=== PATIENT | male | born 1930 | race Caucasian/White ===

== ENCOUNTER 2017-09-27 09:24 | Outpatient (CLI) | payer MEDICARE, BC ==
[2017-09-27 10:41] LABS: Hemoglobin 11.9 g/dL (14.0-18.0); Mean Corpuscular HGB CONC 33.9 g/dL (32.0-36.0); Mean Corpuscular Hemoglobin 34.7 pg (27.0-31.0); Mean Platelet Volume 7.4 fL (7.4-10.4); Platelet Count 152 thou/uL (130-400); RBC Distribution Width 11.8 % (11.5-14.5); Red Blood Cell (RBC) Count 3.43 mill/uL (4.70-6.10); White Blood Cell (WBC) Count 5.1 thou/uL (4.8-10.8)
[2017-09-27 10:49] LABS: INR-International Normal Ratio 1.1; PTT 28.5 SEC (22.9-36.1); Prothrombin Time 14.1 SEC (12.0-14.7)
[2017-09-27 11:01] LABS: ALT (SGPT) 10 U/L (8-55); AST (SGOT) 13 U/L (5-34); Alkaline Phosphatase 51 U/L (40-150); Anion Gap 13 mmol/L (10-20); BUN (Urea Nitrogen) 24 mg/dL (8.4-25.7); Bilirubin, Total 0.9 mg/dL (0.2-1.2); Calc. Creatinine Clearance 0 mL/min (70-130); Calcium 8.7 mg/dL (7.8-10.44); Carbon Dioxide 23 mmol/L (23-31); Chloride 107 mmol/L (98-107); Estimated GFR-MDRD 38; Globulin 2.5 g/dL (2.4-3.5); Glucose 241 mg/dL (83-110); Potassium 4.2 mmol/L (3.5-5.1); Protein, Total 6.5 g/dL (5.8-8.1); Sodium 139 mmol/L (136-145)
--- NOTE | 2017-09-27 12:01 | RAD ---
PA AND LATERAL CHEST RADIOGRAPH: Date: 09-27-17 History: Pre-operative evaluation. Comparison: 03-30-15 FINDINGS: Cardiac silhouette remains mildly enlarged. There is mild elevation of the right hemidiaphragm with m ild atelectasis at each lung base. There is a hiatal hernia seen in the retrocardiac region. Vascular calcification in the thoracic aorta. Mild degenerative changes are noted in the spine. Vascular calc ification seen in the thoracic as well as abdominal aorta. IMPRESSION: 1. No acute cardiopulmonary process. 2. Cardiomegaly. 3. Elevation right hemidiaphragm. 4. Hiatal hernia retrocardiac region. POS: [facility]
== END 2017-09-27 09:25 | disposition home or self-care (01) ==
LOC: LABBT 09:24
PROVIDERS: ATTEND Internal Medicine Cardiovascular Disease
DX: Z01.818 Encounter for other preprocedural examination (principal); I35.0 Nonrheumatic aortic (valve) stenosis; I51.7 Cardiomegaly; K44.9 Diaphragmatic hernia without obstruction or gangrene; J98.6 Disorders of diaphragm
CPT/HCPCS: 71046; 80053; 85027; 85610; 85730; 93005; 93010

== ENCOUNTER 2017-10-01 06:04 | Inpatient (IN) | payer MEDICARE, BC ==
--- NOTE | 2017-09-30 22:38 | HP ---
DATE OF ADMISSION: 10/01/2017 HISTORY OF PRESENT ILLNESS: Caleb Reis is an 87-year-old white male that I initially evaluated in 05/2008. He was found to have a heart murmur and he had been told that for at least 10-15 years. He denied any cardiac symptoms of chest pain or shortness of breath. Echocardiogram revealed mild aortic stenosis with a peak gradient of 30 mm, mean gradient of 18 mm. He underwent Cardiolite treadmill test exercising for 4 minutes and 15 seconds and had [address] segment depression in II, III, F, V4 through V6, which resolved in less than 1 minute into recovery. The test was suggestive for ischemia. Cardiolite revealed no evidence of ischemia or fixed defect. He continued to be intermittently followed in the office for his aortic stenosis. He was seen on a yearly basis for followup of his aortic stenosis. It is of note that in 04/2014 on echo, he did not have a pericardial effusion. He then presented to the hospital in 10/2014 with altered mental status. He apparently had gone to an [employer] football game and was quite silent at the game, which was unusual for him. The family noted increasing lethargy and weakness. Echocardiogram showed a [id number] sized pericardial effusion with early signs of tamponade. His mental status changes gradually improved. There was question of whether he had a viral encephalopathy. He was placed on colchicine for his pericardial effusion. He underwent a lumbar puncture, which was unremarkable. He was started on acyclovir. He ultimately was discharged to rehabilitation. In both 12/2014 and 02/2015, he continued to have moderate pericardial effusion. This never did resolve. He did have some exertional dyspnea and ultimately it was felt that he should undergo pericardial window and biopsy, which was performed by Dr. Henao on 03/30/2015. Pericardial biopsy revealed mild chronic inflammation, but no evidence of malignancy. In 05/2015, due to continued dyspnea, we discussed cardiac catheterization for further evaluation of his aortic stenosis. However, he fell and broke his pelvis and denied any shortness of breath after the pelvic fracture. After that , it seemed like he was not symptomatic with shortness of breath any longer. In 05/2016, he stated that his breathing was doing better than it was 6 months prior and he would only get short of breath if he would run. In 04/2017, his dyspnea again would only occur if he would run. He then returned for followup on 09/10/2017. He continued to have mild dyspnea. On 09/26/2017, he returned for followup and echo. He started to have more shortness of breath and pedal edema. Echocardiography revealed moderate concentric left ventricular hypertrophy with ejection fraction of 50%-55%, moderate left atrial enlargement, mild right atrial enlargement, moderate mitral annular calcification, moderate mitral regurgitation with possible torn chordae. He had severe aortic stenosis with peak gradient of 89 mm, mean gradient of 57 mm and an aortic valve area of 0.62 cm2, moderate to severe aortic insufficiency, severe tricuspid regurgitation and mild pulmonic regurgitation. With his worsening dyspnea as well as pedal edema, it was felt that he was started to have heart failure symptoms and with his severe aortic stenosis, this needed to be further evaluated and consideration will be given to aortic valve replacement. Risks of catheterization have been discussed including , myocardial infarction, CVA, transfusion, limb loss, dye reaction, vascular injury, kidney failure, etc. He understands and agrees to proceed. His creatinine is 1.72 and this will be performed in the biplane room. PAST MEDICAL HISTORY: Hypertension, hypercholesterolemia, diet-controlled diabetes, obstructive sleep apnea, restless legs syndrome, aortic stenosis. OPERATIONS: Left inguinal herniorrhaphy, appendectomy, left hand surgery. MEDICATIONS: Aspirin 81 daily, terazosin 5 mg daily, valsartan 320 q.a.m., benazepril 10 mg at bedtime, amlodipine 10 mg 1/2 tablet daily, clonazepam 0.5 mg daily, zolpidem 10 mg at bedtime, simvastatin 20 mg 1/2 tablet q.p.m., hydralazine 100 mg b.i.d., furosemide 20 mg q.a.m., carvedilol 3.125 at bedtime. ALLERGIES: PENICILLIN. SOCIAL HISTORY: He does not smoke. He occasionally drinks wine. FAMILY HISTORY: Negative for coronary artery disease. REVIEW OF SYSTEMS: Otherwise, unremarkable as noted in the office note. PHYSICAL EXAMINATION: VITAL SIGNS: Blood pressure 146/61, pulse is 68. HEENT: PERRL. NECK: Supple. CHEST: Clear. CARDIAC: S1 and S2 normal without any S3 or S4. There is a 2-3/6 systolic murmur heard along the left sternal border. ABDOMEN: Normal bowel sounds without tenderness or organomegaly. EXTREMITIES: Revealed 1+ pretibial edema. NEUROLOGIC: Grossly intact. SKIN: Warm and dry. LABORATORY DATA: Creatinine is 1.72. IMPRESSION: 1. Severe aortic stenosis with valve area of 0.62 cm2 on echo and now with development of somewhat increasing shortness of breath as well as pedal edema. 2. History of a pericardial effusion, which did not resolve over many months and ultimately underwent pericardial window and no specific etiology was found. 3. Hypertension. 4. Hypercholesterolemia. 5. Diet-controlled diabetes. 6. Chronic kidney disease. 7. Obstructive sleep apnea. PLAN: Mr. Reis will undergo cardiac catheterization and indicated procedures. Risks of catheterization have been discussed and he agrees to proceed. THOMPSON
[2017-10-01] MEDS ORDERED: Protamine Sulfate 50 MG/5 ML VIAL ONE (06:39)
[2017-10-01] MEDS ORDERED: Nitroglycerin 100MG/250ML BOT 0 ML ONE (06:39)
[2017-10-01] MEDS ORDERED: Heparin 10,000 UNITS/1 ML VIAL ONE (06:39)
[2017-10-01 06:48] LABS: Anion Gap 10 mmol/L (10-20); BUN (Urea Nitrogen) 22 mg/dL (8.4-25.7); Calc. Creatinine Clearance 37 mL/min (70-130); Carbon Dioxide 26 mmol/L (23-31); Chloride 107 mmol/L (98-107); Estimated GFR-MDRD 42; Glucose 132 mg/dL (83-110); Potassium 4.1 mmol/L (3.5-5.1); Sodium 139 mmol/L (136-145)
[2017-10-01] MEDS ORDERED: Fentanyl 100 MCG/2 ML VIAL ONE (07:30)
[2017-10-01] MEDS ORDERED: Midazolam HCl 2 mg/2 ml Vial ONE (07:30)
[2017-10-01] MEDS ORDERED: Acetaminophen/Codeine 30-300mg Tablet PO PRN ×2 (08:38)
[2017-10-01] MEDS ORDERED: traMADol HCl 50 MG TAB PO PRN (08:38)
[2017-10-01] MEDS ORDERED: Nitroglycerin 0.4 MG TAB (25 Tab Bottle) SL PRN (08:38)
[2017-10-01] MEDS ORDERED: clonazePAM 0.5 MG TAB PO PRN (08:44)
[2017-10-01] MEDS ORDERED: Sodium Chloride 0.9% 1,000 ML IV SCH ×2 (08:45→14:45)
[2017-10-01] MEDS ORDERED: Sodium Chloride 0.9% 200 ML IV PRN (08:45)
[2017-10-01] MEDS ORDERED: Zolpidem Tartrate 5 MG TAB PO PRN (08:52)
[2017-10-01] MEDS ORDERED: Amlodipine 5 MG TAB PO SCH ×2 (09:00→21:00)
[2017-10-01] MEDS ORDERED: Escitalopram Oxalate 10 mg Tablet PO SCH ×2 (10:00→17:00)
[2017-10-01] MEDS ORDERED: Iopamidol 370 76% 50 ML VIAL FS ONE (10:18)
[2017-10-01] MEDS ORDERED: Iopamidol 370 76% 100 ML VIAL ONE (10:18)
--- NOTE | 2017-10-01 12:55 | CON ---
DATE OF CONSULTATION: 10/01/2017 HISTORY OF PRESENT ILLNESS: This is an 87-year-old gentleman with a fairly long history of aortic st enosis that has slowly progressed over time with the most recent echo showing a peak gradient of abou t 89 mm. He has developed some peripheral edema and does have some dyspnea on exertion. He underwen t cardiac catheterization today showing about a 70% calcified right coronary artery lesion in the pro ximal third with otherwise fairly mild coronary disease. His aortic valve gradient was 75 with a whit ve area of 0.54 cm2. He had some pulmonary hypertension with PA pressures of almost 80 and RV pressu res of almost 90. PAST MEDICAL HISTORY: Additional past medical history includes hypertension, dyslipidemia, diabetes mellitus, obstructive lung disease, chronic kidney disease. PAST SURGICAL HISTORY: Includes a remote left inguinal hernia and appendectomy and hand surgery. Ot wise, his past medical history does include a pelvic fracture about 2-3 years ago which had him do wn for about a month. HOME MEDICATIONS: Include aspirin 81 a day, Hytrin 5 mg a day, valsartan 320 a day, benazepril 10 mg at bedtime, amlodipine 5 mg a day, clonazepam 0.5 mg a day, simvastatin 10 mg a day, hydralazine 100 b.i.d., Lasix 20 a day, Coreg 3.125 at bedtime. ALLERGIES: PENICILLIN. 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 He has never smoked. He drinks occasionally and is accompanied today by his as well as a daughter from the [place] area. PHYSICAL EXAMINATION: GENERAL: He is an alert, cooperative gentleman, elderly, slightly hard of hearing. NECK: I did not appreciate any bruits. LUNGS: Clear to auscultation anteriorly. CARDIAC: Systolic murmur across the precordium. ABDOMEN: Slightly obese, nontender, no organomegaly, no palpable aneurysm. EXTREMITIES: He has some mild bilateral lower extremity edema with palpable femoral and posterior ti bial pulses bilaterally. Puncture site in the right groin with slight hematoma. I have gone over the situation with the patient and family. Given his age, TAVR may be most appropri ate initial approach. Surgical intervention could certainly be entertained if he is not a candidate for TAVR. Additional past surgical history includes a pericardial window about 2 years ago for a moderate sized pericardial effusion. I have gone over and answered their questions and at this time, he will be ad mitted overnight for hydration and monitor his puncture site and if the family decides to proceed wit h a TAVR procedure, we will need to direct them to one of the facilities either [facility] or [facility] that can handle this.
[2017-10-01] MEDS ORDERED: Furosemide 20 MG/2 ML VIAL ONE (14:52)
[2017-10-01] MEDS: Aspirin 81 mg Enteric Coated Tablet PO SCH (16:19)
[2017-10-01] MEDS: hydrALAZINE 25 MG TAB PO SCH ×2 (16:55→21:15)
[2017-10-01] MEDS ORDERED: cloNIDine 0.1 MG TAB PO PRN (16:56)
[2017-10-01] MEDS: Carvedilol 6.25 MG TAB PO SCH (17:06)
[2017-10-01 18:14] VITALS: BMI 29.5
[2017-10-01] MEDS ORDERED: Simvastatin 20 MG TAB PO SCH (21:00)
[2017-10-01] MEDS ORDERED: Donepezil HCl 5 MG TAB PO SCH (21:00)
[2017-10-01] MEDS ORDERED: Terazosin HCl 5 MG CAP PO SCH (21:00)
[2017-10-02 05:42] LABS: Anion Gap 12 mmol/L (10-20); BUN (Urea Nitrogen) 19 mg/dL (8.4-25.7); Calc. Creatinine Clearance 52 mL/min (70-130); Calcium 8.2 mg/dL (7.8-10.44); Carbon Dioxide 21 mmol/L (23-31); Chloride 108 mmol/L (98-107); Estimated GFR-MDRD 58; Glucose 124 mg/dL (83-110); Potassium 3.8 mmol/L (3.5-5.1); Sodium 137 mmol/L (136-145)
[2017-10-02] MEDS: Aspirin 81 mg Enteric Coated Tablet PO SCH (08:36)
[2017-10-02] MEDS: hydrALAZINE 25 MG TAB PO SCH (08:36)
[2017-10-02] MEDS: Carvedilol 6.25 MG TAB PO SCH (08:36)
[2017-10-02] MEDS ORDERED: Escitalopram Oxalate 10 mg Tablet PO SCH (09:00)
[2017-10-02] MEDS ORDERED: Furosemide 20 MG TAB PO SCH (09:00)
[2017-10-02] MEDS ORDERED: Valsartan 80 MG TAB PO SCH (09:15)
[2017-10-02 10:57] VITALS: BP 135/69; TEMP 98.2
--- NOTE | 2017-10-02 11:40 | DIS ---
DATE OF ADMISSION: 10/01/2017 DATE OF DISCHARGE: 10/02/2017 DISCHARGE DIAGNOSES: 1. Severe aortic stenosis with valve area of 0.54 cm2, mean gradient 75 mm. 2. Two-vessel coronary artery disease - 50% ramus and 70% proximal right coronary artery. 3. Normal left ventricular function. 4. History of chronic pericardial effusion, ultimately undergoing pericardial window and pericardial biopsy without specific etiology being found in 03/2015. 5. Hypertension. 6. Hypercholesterolemia. 7. Diet-controlled diabetes. 8. Chronic kidney disease. 9. Obstructive sleep apnea. DISCHARGE MEDICATIONS: Carvedilol 6.25 at bedtime will be increased to 6.25 b.i.d. He will continue his other medications, amlodipine 5 mg q.p.m., aspirin 81 daily, clonazepam 0.5 at bedtime, vitamin B12 1000 mcg q.a.m., Aricept 5 mg at bedtime, Synalar solution topically b.i.d., furosemide 20 q.a.m., hydralazine 100 mg b.i.d., multivitamin, simvastatin 10 at bedtime, terazosin 5 mg at bedtime, valsartan 320 q.p.m., zolpidem tartrate 10 mg at bedtime. DISCHARGE DISPOSITION: The patient will be seen in followup in 2 months. He is going home to decide on TAVR with right coronary artery stent placement and where he wishes to have this performed. Arrangements will be made for him to be evaluated. It was emphasized that this decision is to be made soon with his severe aortic stenosis. HOSPITAL COURSE: Mr. Reis noted to have increased shortness of breath as well as peripheral edema. Please see admission note for further details. The decision was made to observe him overnight and to gently hydrate him overnight with a creatinine of 1.72. His initial creatinine prior to catheterization when he came back was 1.56 and after hydration, the following morning, his creatinine is 1.19. Also, 2 weeks ago, he had an LDL cholesterol of 64. At cardiac catheterization, he was found to have normal left ventricular function with ejection fraction of 55%-60%. There was no significant mitral regurgitation at catheterization. Hemodynamics revealed aortic valve gradient 75 mm with an aortic valve area of 0.54 cm2. He had pulmonary artery hypertension with right ventricular pressure of 87/16. Coronary arteries revealed normal left main, 20% proximal LAD, 50% ramus, and normal circumflex. The right coronary artery had a 30% and a 70% proximal stenosis. The patient was seen by Dr. Farias for evaluation of aortic valve replacement and CABG x1. It was also his feelings that if TAVR can be performed , probably this would be in this gentleman's best interest with chronic kidney disease and memory deficit. He was observed overnight, hydrated and then discharged to arrive at a decision regarding TAVR and stent placement and where to have this. THOMPSON
[2017-10-03] MEDS ORDERED: Valsartan 80 MG TAB PO SCH (09:00)
== END 2017-10-02 11:28 | disposition home or self-care (01) | DRG 287 ==
LOC: CCL 06:04 → 2NO 15:31
PROVIDERS: ADMIT Internal Medicine Cardiovascular Disease; ATTEND Internal Medicine Cardiovascular Disease
PROC: 4A023N7 Measurement of Cardiac Sampling and Pressure, Left Heart, Percutaneous Approach (ICD-10-PCS; principal; 2017-10-01)
PROC: B2111ZZ Fluoroscopy of Multiple Coronary Arteries using Low Osmolar Contrast (ICD-10-PCS; 2017-10-01)
DX: I35.0 Nonrheumatic aortic (valve) stenosis (principal); I10 Essential (primary) hypertension; E78.00 Pure hypercholesterolemia, unspecified; E11.9 Type 2 diabetes mellitus without complications; N18.9 Chronic kidney disease, unspecified; E11.22 Type 2 diabetes mellitus with diabetic chronic kidney disease; G47.33 Obstructive sleep apnea (adult) (pediatric)
CPT/HCPCS: 36415; 80048; 85347; 93460; 93567; 99152; 99153; C1769; J1644; J1940; J2250; J2720; J3010

== ENCOUNTER 2017-10-06 16:08 | Observation (INO) | payer MEDICARE, BC ==
[2017-10-06 16:49] LABS: Hemoglobin 10.5 g/dL (14.0-18.0); Mean Corpuscular HGB CONC 36.6 g/dL (32.0-36.0); Mean Corpuscular Hemoglobin 33.8 pg (27.0-31.0); Mean Corpuscular Volume 92.2 fL (78.0-98.0); Platelet Count 141 thou/uL (130-400); RBC Distribution Width 11.3 % (11.5-14.5); Red Blood Cell (RBC) Count 3.12 mill/uL (4.70-6.10); White Blood Cell (WBC) Count 7.6 thou/uL (4.8-10.8)
--- NOTE | 2017-10-06 16:50 | RAD ---
CHEST ONE VIEW: History: Dyspnea. Comparison: 09-27-17 FINDINGS: Cardiac silhouette is magnified and enlarged. Pulmonary vasculature more engorged with widespread ret icular nodular interstitial prominence. Right hemidiaphragm remains elevated. Mediastinum midline wit h aortic calcification. No lobar consolidation or evidence of pneumothorax. IMPRESSION: Cardiomegaly. Pulmonary vascular congestion. POS: [facility]
[2017-10-06] MEDS ORDERED: Nitroglycerin 2% Ointment 1 INCH/1 GM Packet ONE (16:54)
[2017-10-06 16:56] LABS: ALT (SGPT) 13 U/L (8-55); AST (SGOT) 19 U/L (5-34); Albumin 3.8 g/dL (3.4-4.8); Alkaline Phosphatase 50 U/L (40-150); Anion Gap 13 mmol/L (10-20); BUN (Urea Nitrogen) 18 mg/dL (8.4-25.7); Bilirubin, Total 1.3 mg/dL (0.2-1.2); CK (CPK) 38 U/L (30-200); Calc. Creatinine Clearance 0 mL/min (70-130); Calcium 8.8 mg/dL (7.8-10.44); Carbon Dioxide 24 mmol/L (23-31); Chloride 106 mmol/L (98-107); Estimated GFR-MDRD 45; Globulin 2.8 g/dL (2.4-3.5); Glucose 137 mg/dL (83-110); Lipase 18 U/L (8-78); Potassium 4.2 mmol/L (3.5-5.1); Protein, Total 6.6 g/dL (5.8-8.1); Sodium 139 mmol/L (136-145)
[2017-10-06 16:57] LABS: Troponin I 0.054 ng/mL (< 0.028)
[2017-10-06 17:02] LABS: Band 5 % (5-11); Eosinophils 2 % (0-10); Lymphocytes 14 % (21-51); MDiff Complete? YES; Monocytes 7 % (0-10); Neutrophil 72 % (42-75); PLT Morphology Comment Appears Adequate
[2017-10-06] MEDS ORDERED: Furosemide 20 MG/2 ML VIAL ONE (17:32)
[2017-10-06] MEDS ORDERED: Donepezil HCl 5 MG TAB PO SCH (21:30)
[2017-10-06 21:35] VITALS: BMI 28.2
[2017-10-06] MEDS ORDERED: Terazosin HCl 5 MG CAP PO SCH (21:45)
[2017-10-06] MEDS ORDERED: clonazePAM 0.5 MG TAB PO SCH (21:45)
[2017-10-06] MEDS ORDERED: Escitalopram Oxalate 20 mg Tablet PO SCH (21:45)
[2017-10-06] MEDS ORDERED: Amlodipine 5 MG TAB PO SCH (21:45)
[2017-10-06] MEDS ORDERED: Carvedilol 6.25 MG TAB PO SCH (21:45)
[2017-10-06] MEDS ORDERED: hydrALAZINE 25 MG TAB PO SCH (21:45)
[2017-10-06] MEDS ORDERED: Valsartan 80 MG TAB PO SCH (21:45)
[2017-10-06] MEDS ORDERED: Simvastatin 20 MG TAB PO SCH (21:45)
[2017-10-06] MEDS ORDERED: Ondansetron HCl/PF 4 MG/2 ML Vial IVP PRN (22:53)
[2017-10-06] MEDS ORDERED: Acetaminophen 325 MG TAB PO PRN (22:53)
[2017-10-06 23:31] LABS: Troponin I 0.064 ng/mL (< 0.028)
[2017-10-07] MEDS: Nitroglycerin 2% Ointment 1 INCH/1 GM Packet TOP SCH ×3 (00:50→12:05)
[2017-10-07] MEDS ORDERED: Zolpidem Tartrate 5 MG TAB PO PRN (01:06)
[2017-10-07] MEDS ORDERED: Dextrose 5% in Water 1,000 ML IV PRN (01:14)
[2017-10-07] MEDS ORDERED: Dextrose 50% Abboject 50 ML SYRINGE SLOW IVP PRN (01:14)
[2017-10-07] MEDS ORDERED: HumaLOG 300 UNITS/3 ML VIAL SC PRN (01:14)
[2017-10-07 05:39] LABS: #Eosinphils 0.1 thou/uL (0.0-0.7); #Lymphocytes 1.3 thou/uL (1.20-3.40); #Monocytes 0.8 thou/uL (0.11-0.59); %Basophils 0.2 % (0.0-1.0); %Eosinophils 1.1 % (0.0-10.0); %Lymphocytes 17.7 % (21.0-51.0); %Monocytes 10.5 % (0.0-10.0); %Neutrophils 70.5 % (42.0-75.0); Hemoglobin 10.1 g/dL (14.0-18.0); Mean Corpuscular HGB CONC 34.4 g/dL (32.0-36.0); Mean Corpuscular Hemoglobin 34.9 pg (27.0-31.0); Mean Platelet Volume 7.1 fL (7.4-10.4); Platelet Count 134 thou/uL (130-400); RBC Distribution Width 11.6 % (11.5-14.5); Red Blood Cell (RBC) Count 2.89 mill/uL (4.70-6.10); White Blood Cell (WBC) Count 7.2 thou/uL (4.8-10.8)
[2017-10-07 05:44] LABS: Anion Gap 14 mmol/L (10-20); BUN (Urea Nitrogen) 17 mg/dL (8.4-25.7); Calc. Creatinine Clearance 40 mL/min (70-130); Calcium 8.6 mg/dL (7.8-10.44); Carbon Dioxide 24 mmol/L (23-31); Chloride 103 mmol/L (98-107); Estimated GFR-MDRD 45; Glucose 150 mg/dL (83-110); Potassium 3.7 mmol/L (3.5-5.1); Sodium 137 mmol/L (136-145)
[2017-10-07] MEDS: Carvedilol 6.25 MG TAB PO SCH ×2 (08:48→16:06)
[2017-10-07] MEDS ORDERED: Furosemide 40 MG/4 ML VIAL SLOW IVP SCH (09:00)
[2017-10-07] MEDS ORDERED: Multivitamin W/ Minerals 1 TAB PO SCH (09:00)
[2017-10-07] MEDS ORDERED: Enoxaparin Sodium 40 MG/0.4 ML SYRINGE SC SCH (09:00)
[2017-10-07] MEDS ORDERED: hydrALAZINE 25 MG TAB PO SCH (09:00)
[2017-10-07] MEDS ORDERED: Furosemide 20 MG TAB PO SCH (09:00)
[2017-10-07] MEDS ORDERED: Betamethasone Val 0.1% Lotion 60 ML BOT TOP SCH (09:00)
[2017-10-07] MEDS ORDERED: Cyanocobalamin (Vitamin B-12) 1,000 MCG TAB PO SCH (09:00)
[2017-10-07] MEDS ORDERED: CALCIPOTRIENE TOP SCH (09:00)
--- NOTE | 2017-10-07 10:33 | PDOC.PN ---
- Subjective Encounter Start Date: 10/07/17 Encounter Start Time: 10:31 Subjective: dyspnea on exertion - Objective Resuscitation Status: Resuscitation Status FULL:Full Resuscitation MAR Reviewed: Yes Vital Signs & Weight: Vital Signs (12 hours) Temp Pulse Resp BP BP Pulse Ox 10/07/17 07:55 99.5 F 69 18 10/07/17 07:18 99.7 F H 80 20 158/76 H 92 L 10/07/17 01:51 99.5 F 69 18 113/58 L 91 L Weight Weight 178 lb 6.4 oz I&O: 10/06/17 10/07/17 10/08/17 06:59 06:59 06:59 Intake Total 360 Output Total 1200 150 Balance -840 -150 Result Diagrams: 10/07/17 04:46 10/07/17 04:46 Additional Labs: Accuchecks 10/06/17 21:33 POC Glucose 164 H Phys Exam - Physical Examination Neck: no JVD Respiratory: clear to auscultation bilateral Cardiovascular: RRR 3/6 elo/decres murmur Gastrointestinal: soft, positive bowel sounds Musculoskeletal: no edema Dx/Plan (1) Aortic stenosis, severe Code(s): I35.0 - NONRHEUMATIC AORTIC (VALVE) STENOSIS Status: Chronic (2) DM type 2 (diabetes mellitus, type 2) Status: Acute Qualifiers: Diabetes mellitus dedicated intermodal truck driver insulin use: with dedicated intermodal truck driver use Diabetes mellitus complication status: with kidney complications Diabetes mellitus complication detail: with chronic kidney disease Chronic kidney disease stage : stage 3 (moderate) Qualified Code(s): E11.22 - Type 2 diabetes mellitus with diabetic chronic kidney disease; N18.3 - Chronic kidney disease, stage 3 ( moderate); Z79.4 - termination clerk (current) use of insulin (3) Dyslipidemia Code(s): E78.5 - HYPERLIPIDEMIA, UNSPECIFIED Status: Chronic (4) CKD (chronic kidney disease) stage 3, GFR 30-59 ml/min Code(s): N18.3 - CHRONIC KIDNEY DISEASE, STAGE 3 (MODERATE) Status: Chronic (5) Hypertension Code(s): I10 - ESSENTIAL (PRIMARY) HYPERTENSION Status: Chronic Qualifiers: Hypertension type: essential hypertension Qualified Code(s): I10 - Essential (primary) hypertension - Plan cont home meds, discuss with Dr Spivey * .
--- NOTE | 2017-10-07 12:37 | CON ---
DATE OF CONSULTATION: 10/07/2017 HISTORY OF PRESENT ILLNESS: Mr. Caleb Reis is an 87-year-old white male who was just here last week for heart catheterization. Please see admission note from 09/30/2017 and discharge note from 0 10/02/2017 for full details. He was found to have severe aortic stenosis with the valve area of 0.54 cm2 and a mean gradient of 75 mm. He also had a 70% proximal right coronary artery stenosis. At harriett t time, he was seen by Dr. Jeramie Farias and it was his feeling that with the patient's advanced age an d mild dementia, probably a TAVR and stent placement would be his best option. I agree. He went home and he was doing well, but yesterday began to have acute shortness of breath after going to [facility]. He came to the emergency room. Chest x-ray showed pulmonary edema and he was given Lasi x 40 mg IV and nitro paste was placed topically. His shortness of breath has resolved and he had 120 0 mL of urine out. PAST MEDICAL HISTORY: Please see previous admission note and discharge summary. MEDICATIONS: Please see previous admission note and discharge summary. PHYSICAL EXAMINATION: VITAL SIGNS: Blood pressure 158/76, pulse of 80, sinus rhythm. HEENT: PERRL. NECK: Supple. CHEST: Reveals faint crackles at the right base. CARDIOVASCULAR: S1, S2 normal, without any S3 or S4. There is a 2-3/6 systolic ejection murmur in t he aortic area. ABDOMEN: Normal bowel sounds, without tenderness, organomegaly. EXTREMITIES: Revealed 1+ ankle edema. NEUROLOGIC: Grossly intact. SKIN: Warm and dry. LABORATORY DATA: Hemoglobin 10.1, hematocrit 29.4, white count 7200, platelets 134,000. Sodium 137, potassium 3.7, chloride 103, carbon dioxide 24, BUN 17, creatinine 1.48 (creatinine was 1.56 prior t o cardiac catheterization and was 1.19 the day after catheterization). Troponin I is up to 0.064, CK -MB is normal. BNP is 1451.1. LDL earlier this month was 64. IMPRESSION: 1. Pulmonary edema, resolving. 2. Severe aortic stenosis. 3. Two-vessel coronary artery disease - 50% ramus and 70% proximal right coronary artery. 4. Normal left ventricular function. 5. History of chronic pericardial effusion, ultimately undergoing pericardial window and pericardial biopsy without specific etiology being found in 03/2015. 6. Hypertension. 7. Hypercholesterolemia, under good control. 8. Diet controlled diabetes. 9. Chronic kidney disease. 10. Obstructive sleep apnea. PLAN: The patient and family have now decided that they wish to proceed with TAVR and probable right coronary artery stent. They wish transfer to [facility] in [place]. Arrangements for this gooden ve been made through Dr. Tate's office.
--- NOTE | 2017-10-07 12:43 | HP ---
PRIMARY CARE PHYSICIAN: Dr. Gurdeep Brizuela. CODE STATUS: FULL CODE. TIME OF EVALUATION: 10:30 p.m. CHIEF COMPLAINT: Worsening shortness of breath. HISTORY OF PRESENT ILLNESS: This is an 87 years old male patient with past medical history of sleep apnea, diabetes type 2, hyperlipidemia, high cholesterol, hypertension, came to the hospital after gooden ving severely worsening shortness of breath that started since the morning, the patient has a history of aortic stenosis, also some tightness in the chest with no clear triggers, no alleviating factors. The patient was at ease when I examined him in the room. REVIEW OF SYSTEMS: Constitutional: No fever, no chills, generalized weakness. Respiratory: Shortn ess of breath, no sputum production, no cough. Cardiovascular: Chest tightness, no palpitations, no shortness of breath. Gastrointestinal: No nausea, no vomiting, no diarrhea or abdominal pain. HEAD COACH : No dizziness, headache, or feeling lightheaded. Genitourinary: No burning with urination. Extre mities: No leg swelling. All other systems were reviewed and negative except for the findings menti oned above. PAST MEDICAL HISTORY: As mentioned in the HPI. SOCIAL HISTORY: The patient lives with . No alcohol, no drugs. No smoking history. PAST SURGICAL HISTORY: The patient has a history of appendectomy, hernia repair, orthopedic surgery left hand, pericardial window. PSYCHIATRIC HISTORY: Depression. FAMILY HISTORY: Reviewed and noncontributory to current presentation. KNOWN ALLERGIES: SULFA AND PENICILLIN. REPORTED MEDICATIONS: Aspirin, carvedilol, Centrum, clonazepam, donepezil, citalopram, furosemide, h ydralazine, simvastatin, terazosin, valsartan, vitamin B12, zolpidem, Dovonex. PHYSICAL EXAMINATION: VITAL SIGNS: On presentation, blood pressure 153/73 with heart rate 78, respiratory rate was 19, tem perature 98.4, pain was 0/10, and oxygen saturation was 94. GENERAL APPEARANCE: The patient is alert, oriented, not in any acute distress, wearing BiPAP with na tanesha mask. HEENT: Eyes: Normal conjunctiva. Moist oral mucosa. Anicteric. NECK: No JVD. RESPIRATORY: Bilateral air entry, patient has rales on the left lower lobe. No wheezing. Symmetric expansion. CARDIOVASCULAR: Normal rate, regular rhythm. No murmurs, no gallop mild, bilateral leg edema. ABDOMEN: Soft, normal bowel sounds. MUSCULOSKELETAL: Baseline range of motion and strength. No tenderness. SKIN: Warm and intact. No pallor, no rash, no redness. Peripheral pulses are present. Capillary r efill seems to be intact. NEUROLOGIC: Baseline sensory. No evidence of any new focal weakness. Baseline speech. Cranial ner ves seem to be intact. PSYCHIATRIC: The patient is in good mood. No anxiety, oriented, optimal judgment. IMAGING: EKG was reviewed. The patient had normal sinus rhythm at 77, QRS 106. No evidence of any acute ischemic findings. Chest x-ray was reviewed. The patient has cardiomegaly and pulmonary vascu lar congestion. LABORATORY DATA: The patient had normal white count, hemoglobin 10.5, MCV 92, platelet count 141. S odium 139; potassium 4.2; anion gap 13; BUN 18; creatinine 1.48 and previous admission was 1.1; gluco se 137, total bilirubin 103. Troponin initially was 0.054, then 0.064. The beta natriuretic peptide 1451. ASSESSMENT AND PLAN: The patient will be placed in the hospital with the following medical problems: 1. Acute congestive heart failure exacerbation. The patient has a recent cardiac catheterization do ne last week by Dr. Spivey, we will consult Dr. Spivey, reconcile home medications. Put the fanta ent on diuresis. 2. Acute kidney injury. The patient has creatinine 1.48, in previous admission the creatinine was 1 .1 might be cardiorenal, will be secondary to Lasix, will need to be monitor and adjust diuresis as n eeded. 3. Uncontrolled diabetes, initial blood sugar 137, second one 164, place the patient on a sliding sc elisa for optimal control. 4. Hyperlipidemia, reconcile home medications. Low cholesterol diet is advised. 5. Uncontrolled hypertension, presented with systolic blood pressure 163, reconcile home medications , adjust treatment as needed. 6. Deep venous thrombosis prophylaxis.
[2017-10-07 16:07] VITALS: BP 159/72; TEMP 102.1
--- NOTE | 2017-10-07 17:58 | DIS ---
DATE OF ADMISSION: 10/06/2017 DATE OF DISCHARGE: 10/07/2017 TRANSFER OF CARE PRIMARY CARE PROVIDER: Gurdeep Brizuela M.D. TRANSFUSION AIDE: Brandon Spivey M.D. FINAL DIAGNOSES: Severe aortic stenosis, 2-vessel coronary artery disease, normal left ventricular f unction, hypertension, dyslipidemia, diet-controlled diabetes, chronic kidney disease stage 3, pulmon beverley vascular congestion. DISCHARGE MEDICATIONS: Amlodipine 5 mg a day, aspirin 81 mg a day, Coreg 6.25 mg twice a day, clonaz epam 0.5 mg at bedtime, Aricept 5 mg a day, Lexapro 20 mg at bedtime, Lasix 20 mg a day, hydralazine 100 mg p.o. twice a day, Zocor 10 mg at bedtime, terazosin 5 mg at bedtime, valsartan 320 mg at bedti me, Ambien 10 mg a day. DIET: Heart healthy. CODE STATUS: Full code. The patient is being transferred to [facility] under the care of Dr. Tate arranged by Dr. Brandon Spivey. HOSPITAL COURSE: The patient with a long history of heart disease, tight aortic stenosis, admitted w ith some worsening shortness of breath. Chest x-ray showed some cardiomegaly and pulmonary vascular congestion. Chest reveals scant rales posteriorly on my exam. He had a 3/6 harsh systolic murmur. Hemoglobin was 10.1, white count 7.6, platelet count 141,000. His basic metabolic profile is normal except for a creatinine of 1.48. Troponins were elevated at 0.05, 0.06, 0.06. The patient was seen in consultation by Dr. Brandon Spivey. The patient has been recently in the hospital and been told he needed a TAVR. The family had not made a hard decision. At this time, they have made a hard deci senthil to transfer to [facility]. Dr. Brandon Spivey has initiated the process. The process is being completed at the present time. I have written the patient's discharge. EMS is here to pick u p the patient for transfer. CONSULTATIONS: Brandon Spivey M.D. PROCEDURES: None. FOLLOWUP: Follow up will be by Dr. Spivey after returning from having the TAVR.
[2017-10-07] MEDS ORDERED: Simvastatin 20 MG TAB PO SCH (21:00)
[2017-10-07] MEDS ORDERED: clonazePAM 0.5 MG TAB PO SCH (21:00)
[2017-10-07] MEDS ORDERED: Donepezil HCl 5 MG TAB PO SCH (21:00)
[2017-10-07] MEDS ORDERED: Valsartan 80 MG TAB PO SCH (21:00)
[2017-10-07] MEDS ORDERED: Escitalopram Oxalate 20 mg Tablet PO SCH (21:00)
[2017-10-07] MEDS ORDERED: Amlodipine 5 MG TAB PO SCH (21:00)
[2017-10-07] MEDS ORDERED: Terazosin HCl 5 MG CAP PO SCH (21:00)
== END 2017-10-07 16:59 | disposition short-term general hospital (02) ==
LOC: SCSER 16:08 → 2SW 19:04
PROVIDERS: ADMIT Hospitalist; ATTEND Hospitalist
DX: R06.02 Shortness of breath (principal); I13.0 Hypertensive heart and chronic kidney disease with heart failure and stage 1 through stage 4 chronic kidney disease, or unspecified chronic kidney disease; E11.22 Type 2 diabetes mellitus with diabetic chronic kidney disease; N18.3 Chronic kidney disease, stage 3 (moderate); I50.9 Heart failure, unspecified; N17.9 Acute kidney failure, unspecified; I35.0 Nonrheumatic aortic (valve) stenosis; J81.1 Chronic pulmonary edema; I25.10 Atherosclerotic heart disease of native coronary artery without angina pectoris; G47.30 Sleep apnea, unspecified; E78.00 Pure hypercholesterolemia, unspecified; E78.5 Hyperlipidemia, unspecified; E11.65 Type 2 diabetes mellitus with hyperglycemia; Z79.82 Long term (current) use of aspirin; Z79.4 Long term (current) use of insulin; Z79.899 Other long term (current) drug therapy; Z88.0 Allergy status to penicillin; Z88.2 Allergy status to sulfonamides; Z98.890 Other specified postprocedural states
CPT/HCPCS: 71045; 80048; 80053; 82550; 82553; 82962 ×2; 83690; 83880; 84484 ×2; 85025 ×2; 87040; 87077; 87086; 87186; 93005; 96372; 96374; 96376; 99285; G0378 ×2; 36415; 36416; J1650; J1940

== ENCOUNTER 2018-02-24 11:52 | Inpatient (IN) | payer MEDICARE, BC ==
[2018-02-24] MEDS ORDERED: Nitroglycerin 2% Ointment 1 INCH/1 GM Packet ONE (12:31)
--- NOTE | 2018-02-24 12:46 | RAD ---
PORTABLE CHEST: History: Dyspnea. Comparison: 10-06-17 FINDINGS: Heart size is enlarged with a pacemaker in place. Pulmonary vessels are engorged, similar to the prio r examination. IMPRESSION: Cardiomegaly with pulmonary vascular engorgement. POS: [facility]
[2018-02-24 12:48] LABS: ALT (SGPT) 22 U/L (8-55); AST (SGOT) 18 U/L (5-34); Albumin 3.8 g/dL (3.4-4.8); Alkaline Phosphatase 62 U/L (40-150); Anion Gap 16 mmol/L (10-20); BUN (Urea Nitrogen) 32 mg/dL (8.4-25.7); Bilirubin, Total 0.9 mg/dL (0.2-1.2); CK (CPK) 29 U/L (30-200); Calc. Creatinine Clearance 0 mL/min (70-130); Carbon Dioxide 21 mmol/L (23-31); Chloride 112 mmol/L (98-107); Estimated GFR-MDRD 32; Globulin 2.8 g/dL (2.4-3.5); Glucose 133 mg/dL (83-110); Lipase 25 U/L (8-78); Potassium 4.5 mmol/L (3.5-5.1); Protein, Total 6.6 g/dL (5.8-8.1); Sodium 144 mmol/L (136-145)
[2018-02-24 13:02] LABS: Band 1 % (5-11); Eosinophils 2 % (0-10); Hemoglobin 10.6 g/dL (14.0-18.0); Lymphocytes 23 % (21-51); MDiff Complete? YES; Macrocytosis SLIGHT = 6-15 cells (100X) (0-5/hpf); Mean Corpuscular HGB CONC 30.8 g/dL (32.0-36.0); Mean Corpuscular Hemoglobin 32.2 pg (27.0-31.0); Mean Platelet Volume 10.2 fL (7.4-10.4); Monocytes 7 % (0-10); Neutrophil 66 % (42-75); Platelet Count 104 thou/uL (130-400); Platelet Morphology Comment Appears Decreased; RBC Distribution Width 13.3 % (11.5-14.5); Reactive Lymphocytes 1 % (0-10); Red Blood Cell (RBC) Count 3.29 mill/uL (4.70-6.10); White Blood Cell (WBC) Count 5.1 thou/uL (4.8-10.8)
[2018-02-24] MEDS ORDERED: Furosemide 20 MG/2 ML VIAL ONE (13:03)
[2018-02-24 13:04] LABS: CKMB 1.8 ng/mL (0-6.6)
[2018-02-24 18:52] LABS: Troponin I 0.061 ng/mL (< 0.028)
[2018-02-24 23:44] VITALS: BMI 24.9
[2018-02-25] MEDS ORDERED: hydrALAZINE 20 MG/ML VIAL SLOW IVP PRN (00:30)
[2018-02-25] MEDS: Nitroglycerin 2% Ointment 1 INCH/1 GM Packet TOP SCH ×3 (01:24→14:10)
[2018-02-25] MEDS ORDERED: Donepezil HCl 5 MG TAB PO SCH (02:45)
[2018-02-25] MEDS ORDERED: Melatonin 3 MG TAB PO SCH (02:45)
--- NOTE | 2018-02-25 03:42 | HP ---
CHIEF COMPLAINT: Shortness of breath. HISTORY OF PRESENT ILLNESS: The patient is an 88-year-old male, who presented to the emergency department with complaints of shortness of breath and lethargy. The patient had previously been admitted here in October with complications related to severe aortic stenosis. He had made decisions at that time to transfer to [place] for TAVR procedure. Following the TAVR, the patient had a substantial hypotensive episode which sounds like some general cardiovascular collapse, which also resulted in acute renal failure requiring dialysis. The patient was subsequently transferred back here for rehab and continued to follow up with Dr. Augustine, receiving dialysis on a tapering basis and ultimately discontinued that about 3 weeks ago. About 10 days ago, the patient started experiencing increasing dyspnea on exertion, not significant amount of shortness of breath at rest. He also became increasingly lethargic. He felt like he could fall asleep at any point during the day. Today, the patient awoke feeling similar. He got up, had his coffee, he ate some breakfast, and went back to bed. When he got up, he felt so lethargic. He decided it was time to come to the hospital. He has had no fevers or chills. He has had mild dry cough. He has had no specific chest pain. REVIEW OF SYSTEMS: Notable for some peripheral edema over the last several weeks, primarily in the ankles. He has also had decreased appetite for the last few days. Otherwise, all systems were reviewed. All pertinent positives and negatives noted in the history of present illness. PAST MEDICAL HISTORY: Notable for obstructive sleep apnea, diabetes mellitus type 2, hyperlipidemia, and hypertension. Renal failure with dialysis, weaned off 3 weeks ago. PAST SURGICAL HISTORY: Appendectomy, hernia repair, orthopedic surgery, left hand pericardial window, and TAVR. FAMILY HISTORY: Noncontributory after reviewing the patient's family history. SOCIAL HISTORY: The patient lives with his . He is a nonsmoker, nondrinker , and nondrug user. ALLERGIES: PENICILLINS. CURRENT MEDICATIONS: 1. Melatonin 6 mg at bedtime. 2. Lisinopril 2.5 mg daily. 3. Plavix 75 mg daily. 4. Aricept 5 mg at bedtime. 5. Coreg 6.25 p.o. b.i.d. 6. Aspirin 81 mg daily. 7. Zocor 10 mg at bedtime. PHYSICAL EXAMINATION: VITAL SIGNS: Temperature 97.4, pulse 70, respirations 18, O2 saturation 95% on room air, and BP is 196/84. GENERAL APPEARANCE: Thin, age-appropriate male, in no distress. He is wearing his CPAP, easily awakens. HEENT: Pupils equal, round, reactive to light. Has no OP lesions. NECK: Supple and symmetric. HEART: Regular rate and rhythm without murmurs, gallops, or rubs. LUNGS: Clear to auscultation other than some very fine rales at the bases bilaterally. ABDOMEN: Soft, nontender, and nondistended. Positive bowel sounds. No masses. No organomegaly. EXTREMITIES: Warm and dry with 2+ pitting edema at the ankle and below. NEUROLOGIC: The patient appears to be fairly cognitively intact at the moment. He is answering questions appropriately. He is moving all extremities without difficulty. No evidence of focal deficits. PSYCHIATRIC: The patient has normal affect and behavior. LABORATORY DATA: White count 5.1, hemoglobin 10.6, platelets 104. Sodium 144, potassium 4.5, chloride 112, CO2 is 21, BUN 32, creatinine 1.97 with EGFR of 32, glucose 133, AST 18, ALT 22, troponin 0.057, subsequently 0.050. BNP 4367, albumin 3.8. Chest x-ray shows evidence of pulmonary edema. EKG shows paced rhythm at 70 beats per minute without ischemic changes. IMPRESSION AND PLAN: 1. Congestive heart failure. The patient has received diuresis in the emergency department. We will continue with diuresis as tolerated. I suspect the patient likely has some volume overload due to his renal issues. 2. Chronic kidney disease, stage 3. The patient previously had worsened renal function, was on dialysis until 3 weeks ago. A week and a half after that, he started experiencing dyspnea on exertion and lethargy. Suspect this is related to his renal situation. Not able to handle the fluid volume adequately. May need to be on some long-term diuretics. 3. Hypertension. The patient has a history of hypertension. His blood pressure is fairly high right now. Need to get that down in order to help with heart failure. We will give his usual medications and p.r.n. hydralazine. 4. Thrombocytopenia. The patient's previous platelet counts were a little low back in January of 2018, and has been coming down for a couple years. It appears to be in trend and not something acute. 5. History of hyperlipidemia. Continue with simvastatin. 6. History of DM. Accuchecks and SSI. Job ID: [id number] MTDD
[2018-02-25] MEDS ORDERED: Dextrose 5% in Water 1,000 ML IV PRN (05:07)
[2018-02-25] MEDS ORDERED: HumaLOG 300 UNITS/3 ML VIAL SC PRN (05:07)
[2018-02-25] MEDS ORDERED: Dextrose 50% Abboject 50 ML SYRINGE SLOW IVP PRN (05:07)
[2018-02-25 05:33] LABS: Anion Gap 16 mmol/L (10-20); BUN (Urea Nitrogen) 29 mg/dL (8.4-25.7); Calc. Creatinine Clearance 28 mL/min (70-130); Calcium 9.1 mg/dL (7.8-10.44); Carbon Dioxide 20 mmol/L (23-31); Chloride 110 mmol/L (98-107); Estimated GFR-MDRD 36; Glucose 151 mg/dL (83-110); Potassium 3.5 mmol/L (3.5-5.1); Sodium 142 mmol/L (136-145)
[2018-02-25] MEDS: Furosemide 40 MG/4 ML VIAL SLOW IVP SCH ×2 (06:51→14:33)
[2018-02-25] MEDS: Carvedilol 6.25 MG TAB PO SCH ×2 (08:00→16:49)
[2018-02-25] MEDS: Aspirin 81 mg Enteric Coated Tablet PO SCH (08:01)
[2018-02-25] MEDS: Lisinopril 2.5 MG TAB PO SCH (08:01)
[2018-02-25] MEDS: Heparin 5,000 UNITS/ML VIAL SC SCH ×3 (08:01→21:07)
[2018-02-25] MEDS: Clopidogrel Bisulfate 75 MG TAB PO SCH (08:01)
[2018-02-25] MEDS ORDERED: cloNIDine 0.1mg/24 Hour PATCH TD SCH (09:00)
--- NOTE | 2018-02-25 09:55 | CON ---
DATE OF CONSULTATION: HISTORY OF PRESENT ILLNESS: Mr. Reis is an 88-year-old white male with known history of aortic valve disease, status post TAVR, status post acute kidney injury, and chronic renal failure, admitted for shortness of breath secondary to pulmonary edema. This patient was on dialysis until several weeks ago when he was discontinued due to partially cover the renal function. He was doing well until recently when he became short of breath. He has been counseled in the past regarding his fluid and salt intake. We are now being consulted for his chronic renal failure. The patient was noted to be hypertensive today. He was not able to tolerate his p.o. BP medications. REVIEW OF SYSTEMS: Positive for shortness of breath. No chest pain. No syncopal episode. No productive cough. No fever or chills. No diarrhea. Occasional confusion. No hematochezia. No melena. No hematemesis. No dysuria. No urinary frequency. No headache. No diplopia. No fever or chills. Appetite and energy level are decreased. No abdominal pain. Occasional joint pains. No new skin rash. MEDICATIONS: Currently on; 1. Coreg 6.25 mg p.o. b.i.d. 2. Ecotrin 81 mg daily. 3. Plavix 75 mg daily. 4. Furosemide 40 mg IV q.12. 5. Aricept 5 mg at bedtime. 6. Heparin 5000 units subcu t.i.d. 7. Hydralazine p.r.n. 8. Lisinopril 2.5 mg once a day. 9. Humalog sliding scale. 10. Zocor 10 mg at bedtime. PAST MEDICAL HISTORY: 1. Hyperlipidemia. 2. Aortic valve disease. 3. Chronic renal failure presumably from hypertensive nephropathy status post acute kidney injury. 4. Longstanding hypertension. 5. Hyperlipidemia. 6. Status post CHF. PAST SURGICAL HISTORY: Status post TAVR done in [place], status post cuffed hemodialysis catheter placement, status post colonoscopy, status post hernia repair, status post repair of pericardial window placement, and status post appendectomy. SOCIAL HISTORY: The patient is , lives with his . He is a nonsmoker. Occasional alcohol intake. No IV drug abuse. Status post blood transfusion. He is a college graduate. 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 He has 3 children. Sedentary lifestyle. ALLERGIES: PENICILLIN. TRAUMA: None. IMMUNIZATION: Up-to-date. HOSPITALIZATIONS: Please see past medical history. FAMILY HISTORY: No family history of ESRD. PHYSICAL EXAMINATION: VITAL SIGNS: Blood pressure is noted at 212/93, heart rate 71, respiratory rate 18, temperature 97.5, and pulse ox 96%. GENERAL: Noted to be awake, alert, comfortable, not in distress. SKIN: Adequate turgor. HEENT: He has a pinkish conjunctivae. Anicteric sclerae. NECK: No neck mass. No carotid bruits. No JVD. CHEST: No deformities. LUNGS: Decreased breath sounds. Occasional crackles. HEART: Normal sinus rhythm. Grade 2/6 systolic murmur. No gallops or rubs. ABDOMEN: Globular, soft, and nontender. No masses. EXTREMITIES: No edema. No deformities. LABORATORY DATA: Laboratories of February 24, 2018; white count 5.1, hemoglobin 10.6, and hematocrit 34.3. Sodium 144, potassium 4.5, chloride 112, carbon dioxide 21, BUN 32, and creatinine 1.97. BNP 4367. Albumin 3.8. Chest x-ray shows CHF. ASSESSMENT AND PLAN: 1. Congestive heart failure - agree with IV diuretics. Continue current IV Lasix at 40 mg IV q.12. I will probably add isosorbide mononitrate in view of his underlying hypertension also. 2. Hypertension, transdermal clonidine - TTS-1 was started. Continue current BP medications. In addition, we will add Imdur 30 mg tablet once a day. 3. Chronic renal disease - relatively stable renal function. Creatinine of 1.9. He is at near baseline. 4. We will recheck basic metabolic and CBC in a.m. Please note there is no indication for any acute dialytic intervention with this patient. Job ID: [id number]
[2018-02-25] MEDS: hydrALAZINE 25 MG TAB PO SCH ×3 (10:38→20:54)
--- NOTE | 2018-02-25 14:21 | PDOC.PN ---
- Subjective Encounter Start Date: 02/25/18 Encounter Start Time: 10:15 Subjective: sob is better, at bedside -: no chest pain or palp - Objective MAR Reviewed: Yes Vital Signs & Weight: Vital Signs (12 hours) Temp Pulse Resp BP BP BP Pulse Ox 02/25/18 10:38 71 02/25/18 08:01 71 02/25/18 08:00 212/93 H 02/25/18 07:45 97.5 F L 71 18 212/93 H 96 02/25/18 06:45 163/72 H 02/25/18 04:00 97.8 F 72 20 188/67 H 95 Weight Weight 154 lb 6.4 oz I&O: 02/24/18 02/25/18 02/26/18 06:59 06:59 06:59 Intake Total 200 Output Total 400 Balance -200 Result Diagrams: 02/24/18 12:25 02/25/18 04:55 Additional Labs: Accuchecks 02/25/18 02/25/18 10:53 05:58 POC Glucose 140 H 162 H Phys Exam - Physical Examination HEENT: PERRLA, moist MMs Neck: no JVD, supple Respiratory: no wheezing rales+ Cardiovascular: RRR, no significant murmur Gastrointestinal: soft, no distention, positive bowel sounds Musculoskeletal: no edema, pulses present Neurological: non-focal, moves all 4 limbs Psychiatric: A&O x 3 Dx/Plan (1) Acute exacerbation of CHF (congestive heart failure) Code(s): I50.9 - HEART FAILURE, UNSPECIFIED Status: Acute (2) h/o tavr Status: Chronic (3) DM type 2 (diabetes mellitus, type 2) Status: Chronic Qualifiers: Diabetes mellitus assisted insulin use: without intermediate card tender use Diabetes mellitus complication status: with kidney complications Diabetes mellitus complication detail: with chronic kidney disease Chronic kidney disease stage : stage 3 (moderate) Qualified Code(s): E11.22 - Type 2 diabetes mellitus with diabetic chronic kidney disease; N18.3 - Chronic kidney disease, stage 3 ( moderate) Comment: diet controlled (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 Review of Systems - Medications/Allergies Allergies/Adverse Reactions: Allergies Allergy/AdvReac Type Severity Reaction Status Date / Time Penicillins Allergy Verified 09/27/17 09:57 Medications: Current Medications Aspirin (Ecotrin) 81 mg PO DAILY [facility] Last Admin: 02/25/18 08:01 Dose: 81 mg Carvedilol (Coreg) 6.25 mg PO BID-WM [facility] Last Admin: 02/25/18 08:00 Dose: 6.25 mg Clonidine (Otandbma-Ivn-4 Patch) 0.1 mg TD Q7DAYS [facility] Clopidogrel Bisulfate (Plavix) 75 mg PO DAILY [facility] Last Admin: 02/25/18 08:01 Dose: 75 mg Dextrose/Water (Dextrose 50%) 25 gm SLOW IVP PRN PRN PRN Reason: Hypoglycemia Donepezil HCl (Aricept) 5 mg PO HS [facility] Furosemide (Lasix) 40 mg SLOW IVP 0600,1400 [facility] Last Admin: 02/25/18 06:51 Dose: 40 mg Glucagon (Glucagon) 1 mg IM PRN PRN PRN Reason: Hypoglycemia Heparin Sodium (Porcine) (Heparin) 5,000 units SC TID [facility] Last Admin: 02/25/18 08:01 Dose: 5,000 units Hydralazine HCl (Apresoline) 10 mg SLOW IVP Q4H PRN PRN Reason: Hypertension Last Admin: 02/25/18 01:25 Dose: 10 mg Hydralazine HCl (Apresoline) 75 mg PO TID [facility] Last Admin: 02/25/18 10:38 Dose: 75 mg Dextrose/Water (D5w) 1,000 mls @ 0 mls/hr IV .Q0M PRN PRN Reason: Hypoglycemia Insulin Human Lispro (Humalog) 0 units SC .MILD SLIDING SCALE PRN PRN Reason: Mild Correctional Scale Isosorbide Mononitrate (Imdur Er) 30 mg PO DAILY [facility] Last Admin: 02/25/18 10:38 Dose: 30 mg Lisinopril (Zestril) 2.5 mg PO DAILY [facility] Last Admin: 02/25/18 08:01 Dose: 2.5 mg Melatonin (Melatonin) 6 mg PO HS [facility] Simvastatin (Zocor) 10 mg PO HS [facility]
[2018-02-25] MEDS: Melatonin 3 MG TAB PO SCH (20:55)
[2018-02-25] MEDS: Donepezil HCl 5 MG TAB PO SCH (20:55)
[2018-02-25] MEDS ORDERED: Acetaminophen 325 MG TAB PO PRN (20:55)
[2018-02-25] MEDS: Simvastatin 20 MG TAB PO SCH (20:56)
--- NOTE | 2018-02-26 02:17 | CON ---
DATE OF CONSULTATION: HISTORY OF PRESENT ILLNESS: Caleb Reis is an 88-year-old white male, who I initially evaluated in 05/2008. He was found to have a heart murmur and he had been told that for least 10 to 15 years. He denied any cardiac symptoms of chest pain or shortness of breath. Echo revealed mild aortic stenosis with a peak gradient of 30 mm, mean gradient of 18 mm. He underwent Cardiolite treadmill testing, exercised for 4 minutes and 15 seconds and he had [address]-segment depression in II, III, aVF V4 through V6, which resolved in less than 1 minute of recovery. Test was suggestive for ischemia. Cardiolite revealed no evidence of ischemia or fixed defect. He continues to intermittently be followed in the office for his aortic stenosis. He is seen on a yearly basis for followup. It is of note that on echo in 04/2014, he did not have a pericardial effusion. He then presented to the hospital in 10/2014 with altered mental status. He apparently had gone to football game and was quite somnolent at the game, which was unusual for him. The family noted increasing lethargy and weakness. Echo showed mild to moderate size pericardial effusion with early signs of tamponade. Mental status changes gradually improved. There was question whether he had a viral encephalopathy. He was placed on colchicine for his pericardial effusion. He underwent lumbar puncture which was unremarkable. He was started on acyclovir. He ultimately was discharged to rehabilitation. In both 12/2014 and 02/2015, he continued to have moderate pericardial effusion. This never did resolve. He did have some exertional dyspnea and ultimately it was felt that he should undergo pericardial window and biopsy for definitive diagnosis. This was performed by Dr. Henao on 03/30/2015. Pericardial biopsy revealed chronic mild inflammation but no evidence of malignancy. In 05/2015 due to continued dyspnea, we discussed cardiac catheterization for further evaluation of his aortic stenosis; however, he fell and broke his pelvis and after that denied any shortness of breath. It seemed like he was not asymptomatic with shortness of breath. In 05/2016, he thought that his shortness of breath was better than it was 6 months prior to that and only gets short of breath if he would run. In 04/2017, his dyspnea again would only occur if he would run. He returned for followup on 09/10/2017, continued to have mild dyspnea, began on 09/26/2017, return for followup in echo. He stated that he started to have more shortness of breath and had developed pedal edema. Echo revealed moderate concentric left ventricular hypertrophy with ejection fraction of 50% to 55%, moderate left atrial enlargement, mild right atrial enlargement, moderate mitral annular calcification, moderate mitral regurgitation with possible torn chordae. He had severe aortic stenosis with a peak gradient of 89 mm, mean gradient of 57 mm, and an aortic valve area of 0.62 cm2. [id number] aortic insufficiency, severe tricuspid regurgitation, and mild pulmonic regurgitation. It was felt that with his worsening dyspnea as well as peripheral edema and severe aortic stenosis that he needed to undergo cardiac catheterization. 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 Left ventriculogram was normal with ejection fraction of 55% to 60%. The mean aortic gradient was 75 mm with an aortic valve area of 0.54 cm2. He had two vessel coronary artery disease with 20% proximal LAD, 50% ramus, and 70% proximal right coronary artery stenosis. He was hydrated overnight and the day after catheterization his creatinine dropped from 1.72 to 1.56, the following morning 1.19. The patient was seen for evaluation by Dr. Farias as his feeling that with this elderly gentleman with mild dementia that his best interest with his chronic kidney disease would be TAVR. He wished to be discharged and ultimately decided to go to [facility] in [place]. He underwent TAVR by Dr. Tate with placement of a 29 mm bioprosthetic valve. I do not have any records after the device was placed, but according to the 3 or 4 days afterwards, he developed arrest, was intubated, was on a ventilator for a week or two. He also had placement of AV sequential pacemaker in the left subclavian area that he did not have before. He then was sent here to rehab and also with his illness after TAVR, he was on dialysis. Apparently, dialysis was discontinued approximately three weeks ago. For the past week to 10 days, Mr. Reis noted increased shortness of breath as well as increased lethargy, increased drowsiness. He denies any fever or significant cough. He was brought to the emergency room with increased shortness of breath. Chest x-ray revealed pulmonary vascular engorgement. He was given intravenous diuretics in the emergency room and admitted for further evaluation. He denies any chest discomfort. PAST MEDICAL HISTORY: 1. Hypertension. 2. Hypercholesterolemia. 3. Diet-controlled diabetes. 4. Obstructive sleep apnea. 5. Renal insufficiency, status post dialysis. 6. Restless legs syndrome. OPERATIONS: 1. TAVR. 2. Permanent pacemaker placement. 3. Left hand surgery. 4. Appendectomy. 5. Left inguinal herniorrhaphy. MEDICATIONS: Include: 1. Aspirin 81 daily. 2. Plavix 75 mg daily. 3. Carvedilol 6.25 b.i.d. 4. Aricept 5 mg nightly. 5. Lisinopril 2.5 daily. 6. Melatonin 6 mg nightly. 7. Simvastatin 10 mg nightly. ALLERGIES: PENICILLIN. SOCIAL HISTORY: He does not smoke. He occasionally drinks wine. FAMILY HISTORY: Negative for coronary artery disease. REVIEW OF SYSTEMS: A 12-point review of systems is otherwise unremarkable. PHYSICAL EXAMINATION: VITAL SIGNS: Blood pressure 168/72, pulse of 72. HEENT: PERRL. NECK: Supple. CHEST: Clear. CARDIAC: S1 and S2 normal without any S3 or S4. There is 2/6 systolic murmur in the aortic area. ABDOMEN: Normal bowel sounds without tenderness or organomegaly. EXTREMITIES: Revealed 1+ pretibial edema. NEUROLOGICAL: The patient is confused at times. IMAGING STUDIES: EKG reveals atrial pacing with nonspecific intraventricular conduction delay. LABORATORY DATA: Hemoglobin 10.6, hematocrit 34.3, white count 5100, platelets 104,000. Sodium 142, potassium 3.5, chloride 110, carbon dioxide 20, BUN 29, creatinine 1.77. Troponin I 0.061. BNP 4367.2. IMPRESSION: 1. Probable acute on chronic diastolic heart failure. He has had normal left ventricular function in the past; however, he does have a new intraventricular conduction delay on his EKG. 2. Status post transcatheter aortic valve replacement. 3. Two-vessel coronary artery disease with 50% ramus lesion and 70% right coronary artery lesion. 4. Status post pacemaker placement. 5. Hypertension. 6. Hypercholesterolemia. 7. Chronic kidney disease, status post dialysis. 8. Obstructive sleep apnea. 9. Restless legs syndrome. PLAN: The patient's blood pressure needs to be better controlled and his carvedilol dose will be increased. Echocardiogram will be performed to reassess left ventricular function. The patient be diuresed and apparently at home was not on a diuretic and probably needs to be on one on a chronic basis. Job ID: [id number]
[2018-02-26 04:53] LABS: #Eosinphils 0.1 thou/uL (0.0-0.7); #Lymphocytes 1.8 thou/uL (1.20-3.40); #Monocytes 0.8 thou/uL (0.11-0.59); #Neutrophils 4.1 thou/uL (1.40-6.50); %Basophils 0.2 % (0.0-1.0); %Eosinophils 2.2 % (0.0-10.0); %Lymphocytes 26.9 % (21.0-51.0); %Neutrophils 59.7 % (42.0-75.0); Hemoglobin 11.3 g/dL (14.0-18.0); Mean Corpuscular HGB CONC 33.2 g/dL (32.0-36.0); Mean Corpuscular Hemoglobin 34.4 pg (27.0-31.0); Mean Platelet Volume 9.3 fL (7.4-10.4); Platelet Count 128 thou/uL (130-400); RBC Distribution Width 13.7 % (11.5-14.5); Red Blood Cell (RBC) Count 3.29 mill/uL (4.70-6.10); White Blood Cell (WBC) Count 6.8 thou/uL (4.8-10.8)
[2018-02-26 05:04] LABS: Anion Gap 12 mmol/L (10-20); BUN (Urea Nitrogen) 28 mg/dL (8.4-25.7); Calc. Creatinine Clearance 26 mL/min (70-130); Calcium 8.8 mg/dL (7.8-10.44); Carbon Dioxide 25 mmol/L (23-31); Chloride 107 mmol/L (98-107); Estimated GFR-MDRD 34; Glucose 110 mg/dL (83-110); Potassium 3.1 mmol/L (3.5-5.1); Sodium 141 mmol/L (136-145)
[2018-02-26] MEDS: Furosemide 40 MG/4 ML VIAL SLOW IVP SCH ×2 (06:11→16:27)
--- NOTE | 2018-02-26 10:23 | PDOC.PN ---
- Subjective Encounter Start Date: 02/26/18 Encounter Start Time: 09:45 Subjective: breathing better -: no chest pain -: has not ambulated oob yet - Objective MAR Reviewed: Yes Vital Signs & Weight: Vital Signs (12 hours) Temp Pulse Resp BP BP Pulse Ox 02/26/18 08:00 97.6 F 72 18 188/81 H 97 02/26/18 04:00 97.9 F 70 20 176/73 H 95 Weight Weight 148 lb 11.2 oz I&O: 02/25/18 02/26/18 02/27/18 06:59 06:59 06:59 Intake Total 200 1260 Output Total 400 1675 Balance -200 -415 Result Diagrams: 02/26/18 04:28 02/26/18 04:28 Additional Labs: Accuchecks 02/26/18 02/25/18 02/25/18 05:38 20:49 16:42 POC Glucose 108 158 H 115 H 02/25/18 10:53 POC Glucose 140 H Phys Exam - Physical Examination HEENT: PERRLA, moist MMs Neck: no JVD, supple Respiratory: no wheezing rales+ Cardiovascular: RRR, no significant murmur Gastrointestinal: soft, non-tender, positive bowel sounds Musculoskeletal: no edema, pulses present Neurological: non-focal, moves all 4 limbs Psychiatric: normal affect, A&O x 3 Dx/Plan (1) Acute exacerbation of CHF (congestive heart failure) Code(s): I50.9 - HEART FAILURE, UNSPECIFIED Status: Acute Qualifiers: Heart failure type: diastolic Qualified Code(s): I50.33 - Acute on chronic diastolic (congestive) heart failure Comment: ef of 50% (2) h/o tavr Status: Chronic (3) DM type 2 (diabetes mellitus, type 2) Status: Chronic Qualifiers: Diabetes mellitus terminal computer operator insulin use: without halfway use Diabetes mellitus complication status: with kidney complications Diabetes mellitus complication detail: with chronic kidney disease Chronic kidney disease stage : stage 3 (moderate) Qualified Code(s): E11.22 - Type 2 diabetes mellitus with diabetic chronic kidney disease; N18.3 - Chronic kidney disease, stage 3 ( moderate) Comment: diet controlled (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 SPECIFIED DERMATITIS Status: Chronic (5) CKD (chronic kidney disease) stage 3, GFR 30-59 ml/min Code(s): N18.3 - CHRONIC KIDNEY DISEASE, STAGE 3 (MODERATE) Status: Chronic (6) Dyslipidemia Code(s): E78.5 - HYPERLIPIDEMIA, UNSPECIFIED Status: Chronic (7) Hypertension Code(s): I10 - ESSENTIAL (PRIMARY) HYPERTENSION Status: Chronic Qualifiers: Hypertension type: essential hypertension - Plan continue iv diuresis for another 24hrs -: is on asp, plavix, coreg, imdur, lisinopril and zocor -: hydralazine was added yesterday tid 75mg -: renal function slowly returning to baseline -: PT to mobilize as tolerated * . Review of Systems - Medications/Allergies Allergies/Adverse Reactions: Allergies Allergy/AdvReac Type Severity Reaction Status Date / Time Penicillins Allergy Verified 09/27/17 09:57 Medications: Current Medications Acetaminophen (Tylenol) 650 mg PO Q6H PRN PRN Reason: Headache, Aches or Pain Last Admin: 02/25/18 21:10 Dose: 650 mg Aspirin (Ecotrin) 81 mg PO DAILY [facility] Last Admin: 02/25/18 08:01 Dose: 81 mg Carvedilol (Coreg) 12.5 mg PO BID-[facility] Clonidine (Qzdlbsce-Oxy-4 Patch) 0.1 mg TD Q7DAYS [facility] Last Admin: 02/25/18 14:32 Dose: 0.1 mg Clopidogrel Bisulfate (Plavix) 75 mg PO DAILY [facility] Last Admin: 02/25/18 08:01 Dose: 75 mg Dextrose/Water (Dextrose 50%) 25 gm SLOW IVP PRN PRN PRN Reason: Hypoglycemia Donepezil HCl (Aricept) 5 mg PO HS [facility] Last Admin: 02/25/18 20:55 Dose: 5 mg Furosemide (Lasix) 40 mg SLOW IVP 0600,1400 [facility] Last Admin: 02/26/18 06:11 Dose: 40 mg Glucagon (Glucagon) 1 mg IM PRN PRN PRN Reason: Hypoglycemia Heparin Sodium (Porcine) (Heparin) 5,000 units SC TID [facility] Last Admin: 02/25/18 21:07 Dose: 5,000 units Hydralazine HCl (Apresoline) 10 mg SLOW IVP Q4H PRN PRN Reason: Hypertension Last Admin: 02/25/18 01:25 Dose: 10 mg Hydralazine HCl (Apresoline) 75 mg PO TID [facility] Last Admin: 02/25/18 20:54 Dose: 75 mg Dextrose/Water (D5w) 1,000 mls @ 0 mls/hr IV .Q0M PRN PRN Reason: Hypoglycemia Insulin Human Lispro (Humalog) 0 units SC .MILD SLIDING SCALE PRN PRN Reason: Mild Correctional Scale Isosorbide Mononitrate (Imdur Er) 30 mg PO DAILY [facility] Last Admin: 02/25/18 10:38 Dose: 30 mg Lisinopril (Zestril) 2.5 mg PO DAILY [facility] Last Admin: 02/25/18 08:01 Dose: 2.5 mg Melatonin (Melatonin) 6 mg PO HS [facility] Last Admin: 02/25/18 20:55 Dose: 6 mg Simvastatin (Zocor) 10 mg PO HS [facility] Last Admin: 02/25/18 20:56 Dose: 10 mg
[2018-02-26] MEDS: hydrALAZINE 25 MG TAB PO SCH ×3 (10:37→21:33)
[2018-02-26] MEDS: Clopidogrel Bisulfate 75 MG TAB PO SCH (10:38)
[2018-02-26] MEDS: Carvedilol 6.25 MG TAB PO SCH ×2 (10:38→16:26)
[2018-02-26] MEDS: Heparin 5,000 UNITS/ML VIAL SC SCH ×3 (10:39→21:30)
[2018-02-26] MEDS: Aspirin 81 mg Enteric Coated Tablet PO SCH (10:39)
[2018-02-26] MEDS: Lisinopril 2.5 MG TAB PO SCH (10:40)
--- NOTE | 2018-02-26 13:41 | PRG ---
DATE OF SERVICE: 02/26/2018 SUBJECTIVE: Mr. Reis is an 88-year-old white male, who was admitted for congestive heart failure. He has also chronic renal failure. At one time, he was in dialysis, but this was discontinued due to improve renal function. His shortness of breath, much improved with IV Lasix. No other complaints today. A cardiac echo was done yesterday, which showed a normal EF. He most likely has diastolic dysfunction. OBJECTIVE: VITAL SIGNS: Blood pressure is 176/73, heart rate 70, respiratory rate 20, temperature 97.9, and pulse ox 95%. GENERAL: Noted to be awake, alert, and comfortable, not in overt distress. SKIN: Adequate turgor. HEENT: He has a pinkish conjunctivae. Anicteric sclerae. NECK: No neck mass. No carotid bruits. No JVD. CHEST: No deformities. LUNGS: Decreased breath sounds. HEART: Normal sinus rhythm. No murmurs, gallops, or rubs. ABDOMEN: Globular, soft, and nontender. No masses. EXTREMITIES: No edema. No deformities. MEDICATIONS: Medications of February 26, 2018 reviewed. LABORATORIES: July 27, 2018; white count 6.8, hemoglobin 11.3, and hematocrit 34.1. Sodium 141, potassium 3.1, chloride 107, carbon dioxide 25, BUN 28, creatinine 1.89, glucose 110, and calcium 8.8. ASSESSMENT AND PLAN: 1. Mild hypokalemia. Potassium supplementation. 2. Chronic renal failure/acute kidney injury. Stabilizing renal function. Creatinine 1.89 is at baseline. He most likely has underlying hypertensive nephropathy. 3. Congestive heart failure-diastolic dysfunction on IV diuretics. Clinically, the patient is much improved. Please note the last cardiac echo showed normal EF. 4. Overall, I agree with current management. We will recheck basic metabolic, CBC in a.m. Job ID: [id number]
[2018-02-26] MEDS: Donepezil HCl 5 MG TAB PO SCH (21:33)
[2018-02-26] MEDS: Simvastatin 20 MG TAB PO SCH (21:34)
[2018-02-26] MEDS: Melatonin 3 MG TAB PO SCH (21:39)
[2018-02-27] MEDS: Furosemide 40 MG/4 ML VIAL SLOW IVP SCH (05:40)
[2018-02-27 05:59] LABS: #Eosinphils 0.2 thou/uL (0.0-0.7); #Lymphocytes 1.6 thou/uL (1.20-3.40); #Monocytes 0.6 thou/uL (0.11-0.59); #Neutrophils 3.5 thou/uL (1.40-6.50); %Basophils 0.5 % (0.0-1.0); %Eosinophils 3.5 % (0.0-10.0); %Monocytes 9.8 % (0.0-10.0); %Neutrophils 59.2 % (42.0-75.0); Mean Corpuscular HGB CONC 33.4 g/dL (32.0-36.0); Mean Platelet Volume 9.4 fL (7.4-10.4); Platelet Count 123 thou/uL (130-400); RBC Distribution Width 13.8 % (11.5-14.5); Red Blood Cell (RBC) Count 3.15 mill/uL (4.70-6.10); White Blood Cell (WBC) Count 5.9 thou/uL (4.8-10.8)
[2018-02-27 06:28] LABS: Anion Gap 13 mmol/L (10-20); BUN (Urea Nitrogen) 34 mg/dL (8.4-25.7); Calc. Creatinine Clearance 20 mL/min (70-130); Calcium 8.6 mg/dL (7.8-10.44); Carbon Dioxide 27 mmol/L (23-31); Chloride 105 mmol/L (98-107); Estimated GFR-MDRD 26; Glucose 134 mg/dL (83-110); Potassium 3.1 mmol/L (3.5-5.1); Sodium 142 mmol/L (136-145)
[2018-02-27] MEDS ORDERED: Furosemide 40 MG TAB PO SCH (07:30)
[2018-02-27] MEDS: Carvedilol 6.25 MG TAB PO SCH ×2 (08:52→17:46)
[2018-02-27] MEDS: Clopidogrel Bisulfate 75 MG TAB PO SCH (08:53)
[2018-02-27] MEDS: hydrALAZINE 25 MG TAB PO SCH ×3 (08:53→21:19)
[2018-02-27] MEDS: Heparin 5,000 UNITS/ML VIAL SC SCH ×3 (08:54→21:21)
[2018-02-27] MEDS: Aspirin 81 mg Enteric Coated Tablet PO SCH (08:54)
--- NOTE | 2018-02-27 10:09 | PRG ---
DATE OF SERVICE: 02/27/2018 SERVICE: Renal Medicine. SUBJECTIVE: Mr. Reis is an 88-year-old white male with chronic renal failure from presumed hypertensive nephropathy and admitted for congestive heart failure. He was noted to have diastolic dysfunction. He is currently on diuretic regimen. Due to the slightly higher creatinine, his Lasix has been decreased. In addition, I will plan to hold off lisinopril. Please note, he had a cardiac echo and report shows that he has a normal ejection fraction. He voices no new complaints. He denies any chest pain or shortness of breath. OBJECTIVE: VITAL SIGNS: Blood pressure is 148/65, heart rate 70, respiratory rate 18, temperature 96.3, and pulse oximetry 97%. GENERAL: Awake, alert, comfortable, not in overt distress. SKIN: Adequate turgor. HEENT: He has pinkish conjunctivae. Anicteric sclerae. NECK: No neck mass. No carotid bruits. No JVD. CHEST: No deformities. LUNGS: Decreased breath sounds. HEART: Normal sinus rhythm. No murmurs, gallops, or rubs. ABDOMEN: Globular, soft, and nontender. No masses. EXTREMITIES: No edema. No deformities. MEDICATIONS: Medications of February 27, 2018, was reviewed. LABORATORY DATA: Laboratories of February 27, 2018; white count 5.9, hemoglobin 11. Sodium 142, potassium 3.1, chloride 105, carbon dioxide 27, BUN 34, creatinine 2.39, glucose 134, and calcium 8.6. ASSESSMENT AND PLAN: 1. Mild hypokalemia - KCl 20 mEq one tab now. 2. Chronic renal failure - slightly higher creatinine today. My plan is to discontinue his lisinopril. Agree with the decreased dose of furosemide. 3. Congestive heart failure, clinically much improved. 4. Agree with current management. Recheck basic metabolic in a.m. Job ID: [id number]
--- NOTE | 2018-02-27 10:21 | PDOC.PN ---
- Subjective Encounter Start Date: 02/27/18 Encounter Start Time: 10:15 Subjective: no sob, feels better today -: has amb well in hallway yesterday -: at bedside - Objective MAR Reviewed: Yes Vital Signs & Weight: Vital Signs (12 hours) Temp Pulse Resp BP BP BP Pulse Ox 02/27/18 08:53 70 02/27/18 08:52 149/69 H 02/27/18 08:00 97.6 F 70 18 148/65 H 95 02/27/18 04:14 96.3 F L 70 18 148/65 H 97 Weight Weight 150 lb 3.2 oz I&O: 02/26/18 02/27/18 02/28/18 06:59 06:59 06:59 Intake Total 1260 1090 Output Total 1675 1050 Balance -415 40 Result Diagrams: 02/27/18 04:59 02/27/18 04:59 Additional Labs: Accuchecks 02/27/18 02/26/18 02/26/18 05:23 20:26 16:40 POC Glucose 123 H 192 H 156 H 02/26/18 10:30 POC Glucose 148 H Phys Exam - Physical Examination HEENT: PERRLA, moist MMs Neck: no JVD, supple Respiratory: no wheezing, no rales Cardiovascular: RRR, no significant murmur Gastrointestinal: soft, non-tender, positive bowel sounds Musculoskeletal: no edema, pulses present Neurological: non-focal, moves all 4 limbs Psychiatric: normal affect, A&O x 3 Dx/Plan (1) Acute exacerbation of CHF (congestive heart failure) Code(s): I50.9 - HEART FAILURE, UNSPECIFIED Status: Acute Qualifiers: Heart failure type: diastolic Qualified Code(s): I50.33 - Acute on chronic diastolic (congestive) heart failure Comment: ef of 50% (2) h/o tavr Status: Chronic (3) DM type 2 (diabetes mellitus, type 2) Status: Chronic Qualifiers: Diabetes mellitus penitentiary insulin use: without penitentiary use Diabetes mellitus complication status: with kidney complications Diabetes mellitus complication detail: with chronic kidney disease Chronic kidney disease stage : stage 3 (moderate) Qualified Code(s): E11.22 - Type 2 diabetes mellitus with diabetic chronic kidney disease; N18.3 - Chronic kidney disease, stage 3 ( moderate) Comment: diet controlled (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 Review of Systems - Medications/Allergies Allergies/Adverse Reactions: Allergies Allergy/AdvReac Type Severity Reaction Status Date / Time Penicillins Allergy Verified 09/27/17 09:57 Medications: Current Medications Acetaminophen (Tylenol) 650 mg PO Q6H PRN PRN Reason: Headache, Aches or Pain Last Admin: 02/25/18 21:10 Dose: 650 mg Aspirin (Ecotrin) 81 mg PO DAILY [facility] Last Admin: 02/27/18 08:54 Dose: 81 mg Carvedilol (Coreg) 12.5 mg PO BID-WM [facility] Last Admin: 02/27/18 08:52 Dose: 12.5 mg Clonidine (Ypsalusd-Etk-7 Patch) 0.1 mg TD Q7DAYS [facility] Last Admin: 02/25/18 14:32 Dose: 0.1 mg Clopidogrel Bisulfate (Plavix) 75 mg PO DAILY [facility] Last Admin: 02/27/18 08:53 Dose: 75 mg Dextrose/Water (Dextrose 50%) 25 gm SLOW IVP PRN PRN PRN Reason: Hypoglycemia Donepezil HCl (Aricept) 5 mg PO HS [facility] Last Admin: 02/26/18 21:33 Dose: 5 mg Furosemide (Lasix) 40 mg PO DAILY-[facility] Last Admin: 02/27/18 08:54 Dose: Not Given Glucagon (Glucagon) 1 mg IM PRN PRN PRN Reason: Hypoglycemia Heparin Sodium (Porcine) (Heparin) 5,000 units SC TID [facility] Last Admin: 02/27/18 08:54 Dose: 5,000 units Hydralazine HCl (Apresoline) 10 mg SLOW IVP Q4H PRN PRN Reason: Hypertension Last Admin: 02/25/18 01:25 Dose: 10 mg Hydralazine HCl (Apresoline) 75 mg PO TID [facility] Last Admin: 02/27/18 08:53 Dose: 75 mg Dextrose/Water (D5w) 1,000 mls @ 0 mls/hr IV .Q0M PRN PRN Reason: Hypoglycemia Insulin Human Lispro (Humalog) 0 units SC .MILD SLIDING SCALE PRN PRN Reason: Mild Correctional Scale Isosorbide Mononitrate (Imdur Er) 30 mg PO DAILY [facility] Last Admin: 02/27/18 08:53 Dose: 30 mg Melatonin (Melatonin) 6 mg PO HS [facility] Last Admin: 02/26/18 21:39 Dose: 6 mg Potassium Chloride (K-Dur) 20 meq PO QAM-WM [facility] Simvastatin (Zocor) 10 mg PO HS [facility] Last Admin: 02/26/18 21:34 Dose: 10 mg Sodium Chloride (Flush - Normal Saline) 10 ml IVF Q12HR [facility] Last Admin: 02/27/18 08:55 Dose: 10 ml Sodium Chloride (Flush - Normal Saline) 10 ml IVF PRN PRN PRN Reason: Saline Flush
[2018-02-27] MEDS ORDERED: Potassium Chloride 20 MEQ TAB PO SCH (11:30)
[2018-02-27] MEDS ORDERED: Bisacodyl 10 MG SUPP PR PRN (20:28)
[2018-02-27] MEDS ORDERED: Senokot S 8.6-50 MG TAB PO PRN (20:28)
[2018-02-27] MEDS: Simvastatin 20 MG TAB PO SCH (21:20)
[2018-02-27] MEDS: Melatonin 3 MG TAB PO SCH (21:21)
[2018-02-27] MEDS: Donepezil HCl 5 MG TAB PO SCH (21:21)
[2018-02-28 06:33] LABS: #Eosinphils 0.4 thou/uL (0.0-0.7); #Lymphocytes 1.7 thou/uL (1.20-3.40); #Monocytes 0.6 thou/uL (0.11-0.59); #Neutrophils 2.7 thou/uL (1.40-6.50); %Basophils 0.4 % (0.0-1.0); %Eosinophils 6.4 % (0.0-10.0); %Lymphocytes 31.6 % (21.0-51.0); %Monocytes 11.7 % (0.0-10.0); %Neutrophils 49.9 % (42.0-75.0); Hemoglobin 10.8 g/dL (14.0-18.0); Mean Corpuscular HGB CONC 33.1 g/dL (32.0-36.0); Mean Platelet Volume 9.6 fL (7.4-10.4); Platelet Count 120 thou/uL (130-400); RBC Distribution Width 13.5 % (11.5-14.5); Red Blood Cell (RBC) Count 3.08 mill/uL (4.70-6.10); White Blood Cell (WBC) Count 5.5 thou/uL (4.8-10.8)
[2018-02-28 06:48] LABS: Anion Gap 15 mmol/L (10-20); BUN (Urea Nitrogen) 45 mg/dL (8.4-25.7); Calc. Creatinine Clearance 17 mL/min (70-130); Calcium 8.4 mg/dL (7.8-10.44); Carbon Dioxide 24 mmol/L (23-31); Chloride 105 mmol/L (98-107); Estimated GFR-MDRD 21; Glucose 131 mg/dL (83-110); Potassium 3.7 mmol/L (3.5-5.1); Sodium 140 mmol/L (136-145)
[2018-02-28] MEDS: Carvedilol 6.25 MG TAB PO SCH ×2 (09:35→16:28)
[2018-02-28] MEDS: Potassium Chloride 20 MEQ TAB PO SCH (09:37)
[2018-02-28] MEDS: Clopidogrel Bisulfate 75 MG TAB PO SCH (09:37)
[2018-02-28] MEDS: hydrALAZINE 25 MG TAB PO SCH ×3 (09:38→21:23)
[2018-02-28] MEDS: Aspirin 81 mg Enteric Coated Tablet PO SCH (09:38)
[2018-02-28] MEDS: Heparin 5,000 UNITS/ML VIAL SC SCH ×3 (09:38→21:22)
--- NOTE | 2018-02-28 10:30 | PRG ---
DATE OF SERVICE: 02/28/2018 SERVICE: Renal Medicine. SUBJECTIVE: Mr. Reis is an 88-year-old white male with chronic renal failure from hypertensive nephropathy admitted for diastolic dysfunction. He had a mild CHF, which improved with diuresis. His breathing better for the last few days. Due to the slightly higher creatinine of 2.91 today, his diuretic has been in hold. I did discontinue the lisinopril yesterday. No other complaints today. No chest pain or shortness of breath. OBJECTIVE: VITAL SIGNS: Blood pressure is 130/61, heart rate 70, respiratory rate 14, temperature 98.1, and pulse ox 96%. GENERAL: Awake, alert, comfortable, not in distress. SKIN: Adequate turgor. HEENT: He has a pinkish conjunctiva. Anicteric sclerae. No neck mass. No carotid bruits. No JVD. CHEST: No deformities. LUNGS: Clear breath sounds. No wheezing. No crackles. HEART: Normal sinus rhythm. No murmur. No gallops. No rubs. ABDOMEN: Globular, soft, nontender. No masses. EXTREMITIES: No edema. No deformities. MEDICATIONS: Medications of February 28, 2018, reviewed. LABORATORY DATA: Laboratories of February 28, 2018; white count 5.1, hemoglobin 10.8, hematocrit 32.6. Sodium 147, potassium 3.7, chloride 105, carbon dioxide 24, BUN 45, creatinine 2.91, GFR 21 mL/minutes, glucose 131, calcium 8.4. ASSESSMENT AND PLAN: 1. Acute kidney injury on top of chronic renal failure, slightly higher creatinine of 2.91. This is more likely a reflection of the recent diuretic regimen. Lasix has been discontinued. In addition, I have discontinued lisinopril. I will probably give him salt poor albumin 25 g IV q.6 for one day. I anticipate renal improvement with this simple maneuver. There is no indication for any dialytic intervention. 2. Congestive heart failure-diastolic dysfunction. Clinically, much improved. If renal function was established tomorrow or the creatinine gets better, we can consider discharging him. Job ID: [id number]
--- NOTE | 2018-02-28 11:28 | PDOC.PN ---
- Subjective Encounter Start Date: 02/28/18 Encounter Start Time: 09:45 Subjective: no sob or chest pain -: at bedside, pt is sitting in chair -: has ambulated well yesterday - Objective MAR Reviewed: Yes Vital Signs & Weight: Vital Signs (12 hours) Temp Pulse Resp BP Pulse Ox 02/28/18 09:38 70 02/28/18 04:00 98.1 F 70 14 130/61 96 Weight Weight 150 lb 4.8 oz I&O: 02/27/18 02/28/18 03/01/18 06:59 06:59 06:59 Intake Total 1090 580 Output Total 1050 650 Balance 40 -70 Result Diagrams: 02/28/18 05:25 02/28/18 05:25 Additional Labs: Accuchecks 02/28/18 02/28/18 02/27/18 10:39 05:36 20:45 POC Glucose 153 H 133 H 174 H 02/27/18 02/27/18 16:34 11:24 POC Glucose 133 H 192 H Phys Exam - Physical Examination HEENT: PERRLA, moist MMs Neck: no JVD, supple Respiratory: no wheezing, no rales Cardiovascular: RRR, no significant murmur Gastrointestinal: soft, non-tender, positive bowel sounds Musculoskeletal: no edema, pulses present Neurological: non-focal, moves all 4 limbs Psychiatric: normal affect, A&O x 3 Dx/Plan (1) Acute exacerbation of CHF (congestive heart failure) Code(s): I50.9 - HEART FAILURE, UNSPECIFIED Status: Acute Qualifiers: Heart failure type: diastolic Qualified Code(s): I50.33 - Acute on chronic diastolic (congestive) heart failure Comment: ef of 50% (2) h/o tavr Status: Chronic (3) DM type 2 (diabetes mellitus, type 2) Status: Chronic Qualifiers: Diabetes mellitus chcf insulin use: without chcf use Diabetes mellitus complication status: with kidney complications Diabetes mellitus complication detail: with chronic kidney disease Chronic kidney disease stage : stage 3 (moderate) Qualified Code(s): E11.22 - Type 2 diabetes mellitus with diabetic chronic kidney disease; N18.3 - Chronic kidney disease, stage 3 ( moderate) Comment: diet controlled (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 SPECIFIED DERMATITIS Status: Chronic (5) CKD (chronic kidney disease) stage 3, GFR 30-59 ml/min Code(s): N18.3 - CHRONIC KIDNEY DISEASE, STAGE 3 (MODERATE) Status: Chronic (6) Dyslipidemia Code(s): E78.5 - HYPERLIPIDEMIA, UNSPECIFIED Status: Chronic (7) Hypertension Code(s): I10 - ESSENTIAL (PRIMARY) HYPERTENSION Status: Chronic Qualifiers: Hypertension type: essential hypertension (8) TAMMY (acute kidney injury) Code(s): N17.9 - ACUTE KIDNEY FAILURE, UNSPECIFIED Status: Acute - Plan tammy secondary to diuresis -: is getting albumin infusions -: if creatinine stablizes may dc home with HH in am -: continue hydralazine, coreg, asp, plavix, imdur and zocor -: lasix and lisinopril held due to tammy * . Review of Systems - Medications/Allergies Allergies/Adverse Reactions: Allergies Allergy/AdvReac Type Severity Reaction Status Date / Time Penicillins Allergy Verified 09/27/17 09:57 Medications: Current Medications Acetaminophen (Tylenol) 650 mg PO Q6H PRN PRN Reason: Headache, Aches or Pain Last Admin: 02/25/18 21:10 Dose: 650 mg Aspirin (Ecotrin) 81 mg PO DAILY [facility] Last Admin: 02/28/18 09:38 Dose: 81 mg Bisacodyl (Dulcolax) 10 mg [place] DAILYPRN PRN PRN Reason: Constipation Carvedilol (Coreg) 12.5 mg PO BID-WM [facility] Last Admin: 02/28/18 09:35 Dose: 12.5 mg Clonidine (Uzmtewuc-Zsg-3 Patch) 0.1 mg TD Q7DAYS [facility] Last Admin: 02/25/18 14:32 Dose: 0.1 mg Clopidogrel Bisulfate (Plavix) 75 mg PO DAILY [facility] Last Admin: 02/28/18 09:37 Dose: 75 mg Dextrose/Water (Dextrose 50%) 25 gm SLOW IVP PRN PRN PRN Reason: Hypoglycemia Donepezil HCl (Aricept) 5 mg PO HS [facility] Last Admin: 02/27/18 21:21 Dose: 5 mg Glucagon (Glucagon) 1 mg IM PRN PRN PRN Reason: Hypoglycemia Heparin Sodium (Porcine) (Heparin) 5,000 units SC TID [facility] Last Admin: 02/28/18 09:38 Dose: 5,000 units Hydralazine HCl (Apresoline) 10 mg SLOW IVP Q4H PRN PRN Reason: Hypertension Last Admin: 02/25/18 01:25 Dose: 10 mg Hydralazine HCl (Apresoline) 75 mg PO TID [facility] Last Admin: 02/28/18 09:38 Dose: 75 mg Dextrose/Water (D5w) 1,000 mls @ 0 mls/hr IV .Q0M PRN PRN Reason: Hypoglycemia Insulin Human Lispro (Humalog) 0 units SC .MILD SLIDING SCALE PRN PRN Reason: Mild Correctional Scale Isosorbide Mononitrate (Imdur Er) 30 mg PO DAILY [facility] Last Admin: 02/28/18 09:37 Dose: 30 mg Melatonin (Melatonin) 6 mg PO [facility] Last Admin: 02/27/18 21:21 Dose: 6 mg Potassium Chloride (K-Dur) 20 meq PO QAM-WM [facility] Last Admin: 02/28/18 09:37 Dose: 20 meq Senna/Docusate Sodium (Senokot S) 2 tab PO BID PRN PRN Reason: Constipation Last Admin: 02/27/18 21:18 Dose: 2 tab Simvastatin (Zocor) 10 mg PO [facility] Last Admin: 02/27/18 21:20 Dose: 10 mg Sodium Chloride (Flush - Normal Saline) 10 ml IVF Q12HR [facility] Last Admin: 02/28/18 09:39 Dose: 10 ml Sodium Chloride (Flush - Normal Saline) 10 ml IVF PRN PRN PRN Reason: Saline Flush
[2018-02-28] MEDS: Simvastatin 20 MG TAB PO SCH (21:21)
[2018-02-28] MEDS: Donepezil HCl 5 MG TAB PO SCH (21:23)
[2018-02-28] MEDS: Melatonin 3 MG TAB PO SCH (21:23)
[2018-03-01 09:42] LABS: Anion Gap 15 mmol/L (10-20); BUN (Urea Nitrogen) 43 mg/dL (8.4-25.7); Calc. Creatinine Clearance 21 mL/min (70-130); Calcium 8.7 mg/dL (7.8-10.44); Carbon Dioxide 24 mmol/L (23-31); Chloride 104 mmol/L (98-107); Estimated GFR-MDRD 27; Glucose 132 mg/dL (83-110); Potassium 3.7 mmol/L (3.5-5.1); Sodium 139 mmol/L (136-145)
[2018-03-01] MEDS: Potassium Chloride 20 MEQ TAB PO SCH (10:11)
[2018-03-01] MEDS: hydrALAZINE 25 MG TAB PO SCH (10:11)
[2018-03-01] MEDS: Clopidogrel Bisulfate 75 MG TAB PO SCH (10:11)
[2018-03-01] MEDS: Carvedilol 6.25 MG TAB PO SCH (10:11)
[2018-03-01] MEDS: Aspirin 81 mg Enteric Coated Tablet PO SCH (10:12)
[2018-03-01] MEDS: Heparin 5,000 UNITS/ML VIAL SC SCH (10:12)
--- NOTE | 2018-03-01 13:30 | PDOC.PN ---
- Subjective Encounter Start Date: 03/01/18 Encounter Start Time: 09:15 Subjective: feels better -: no sob, is amb in room -: at bedside - Objective MAR Reviewed: Yes Vital Signs & Weight: Vital Signs (12 hours) Temp Pulse Resp BP BP Pulse Ox 03/01/18 10:11 70 03/01/18 08:00 99 F 71 17 121/56 L 97 03/01/18 03:16 98.7 F 70 18 140/67 97 Weight Weight 153 lb I&O: 02/28/18 03/01/18 03/02/18 06:59 06:59 06:59 Intake Total 580 500 240 Output Total 650 250 350 Balance -70 250 -110 Result Diagrams: 02/28/18 05:25 03/01/18 09:15 Additional Labs: Accuchecks 03/01/18 02/28/18 02/28/18 10:36 20:48 16:04 POC Glucose 176 H 161 H 169 H Phys Exam - Physical Examination HEENT: PERRLA, moist MMs Neck: no JVD, supple Respiratory: no wheezing, no rales Cardiovascular: RRR, no significant murmur Gastrointestinal: soft, non-tender, positive bowel sounds Musculoskeletal: no edema, pulses present Neurological: non-focal, moves all 4 limbs Psychiatric: A&O x 3 Dx/Plan (1) Acute exacerbation of CHF (congestive heart failure) Code(s): I50.9 - HEART FAILURE, UNSPECIFIED Status: Acute Qualifiers: Heart failure type: diastolic Qualified Code(s): I50.33 - Acute on chronic diastolic (congestive) heart failure Comment: ef of 50% (2) h/o tavr Status: Chronic (3) DM type 2 (diabetes mellitus, type 2) Status: Chronic Qualifiers: Diabetes mellitus correction insulin use: without termite exterminator helper use Diabetes mellitus complication status: with kidney complications Diabetes mellitus complication detail: with chronic kidney disease Chronic kidney disease stage : stage 3 (moderate) Qualified Code(s): E11.22 - Type 2 diabetes mellitus with diabetic chronic kidney disease; N18.3 - Chronic kidney disease, stage 3 ( moderate) Comment: diet controlled (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 SPECIFIED DERMATITIS Status: Chronic (5) CKD (chronic kidney disease) stage 3, GFR 30-59 ml/min Code(s): N18.3 - CHRONIC KIDNEY DISEASE, STAGE 3 (MODERATE) Status: Chronic (6) Dyslipidemia Code(s): E78.5 - HYPERLIPIDEMIA, UNSPECIFIED Status: Chronic (7) Hypertension Code(s): I10 - ESSENTIAL (PRIMARY) HYPERTENSION Status: Chronic Qualifiers: Hypertension type: essential hypertension (8) TAMMY (acute kidney injury) Code(s): N17.9 - ACUTE KIDNEY FAILURE, UNSPECIFIED Status: Acute - Plan renal function is trending down to baseline slowly -: may dc home if ok with cardio/nephro -: no lasix or sparkle/arb's for 1 week/until renal function normalizes -: hemostable -: on asp, plavix, coreg, imdur, hydralazine and clonidine patch * .
[2018-03-01 13:36] VITALS: BP 130/62; TEMP 98.1
--- NOTE | 2018-03-02 13:50 | DIS ---
DATE OF ADMISSION: 02/24/2018 DATE OF DISCHARGE: 03/01/2018 DISCHARGE DISPOSITION: Is to home. PRIMARY DISCHARGE DIAGNOSES: Acute congestive heart failure exacerbation with diastolic dysfunction, ejection fraction was 50%, chronic kidney disease, stage 3 with acute kidney injury due to diuresis, history of transcatheter aortic valve replacement, diabetes mellitus type 2, history of psoriatic dermatitis, dyslipidemia, hypertension. PROCEDURES DONE DURING HOSPITALIZATION: Chest x-ray done showed cardiomegaly with pulmonary vascular congestion on the day of admission. Echo with 2D Doppler showed an EF of 50% to 55%, moderate mitral regurgitation, normally-functioning bioprosthetic valve in aortic position, severe tricuspid regurgitation, moderate pulmonic regurgitation. H and H 11 and 32, platelet count 120. Discharge BUN and creatinine is 43 and 2.1. Troponin I was indeterminate, peaking up to 0.05. CK-MB 1.8. BNP was 4367. Albumin is 3.8. INPATIENT CONSULT: Dr. Spivey for Cardiology, Dr. Augustine for Nephrology. DISCHARGE MEDICATION: 1. Plavix 75 mg p.o. daily. 2. Melatonin 6 mg p.o. at bedtime. 3. Aspirin 81 mg p.o. daily. 4. Coreg 12.5 mg p.o. twice daily. 5. Clonidine transdermal patch 0.1 mg once weekly. 6. Donepezil 5 mg p.o. at bedtime. 7. Hydralazine 75 mg p.o. three times daily. 8. Imdur 30 mg p.o. daily. 9. Zocor 10 mg p.o. at bedtime. ALLERGIES: ALLERGIC TO PENICILLIN. DISCHARGE PLAN: The patient to follow up with Dr. Augustine as advised and primary care physician in one week. BRIEF COURSE DURING HOSPITALIZATION: The patient initially came to ER with complaints of shortness of breath. His initial workup revealed acute congestive heart failure exacerbation. Echo with 2D Doppler done showed normal ejection fraction. He had diastolic dysfunction. The patient was gently diuresed. He has known history of chronic kidney disease stage 3. This got worse with acute kidney injury due to diuresis. His Lasix and lisinopril were held, and is continued to be held until his renal function gets back to normal in the outpatient setting. He has had consultation with Dr. Spivey for Cardiology. His medications were slowly uptitrated for congestive heart failure with diastolic dysfunction. Prior to discharge, he is ambulating and eating well. He has ambulated more than 200 feet with a rolling walker. He and his were given complete updates during his stay here. His renal function is slowly stabilizing now and he will be shortly discharged home. Please see a [id number] documentation for the day of discharge on [facility]. Job ID: [id number]
== END 2018-03-01 13:36 | disposition home or self-care (01) | DRG 291 ==
LOC: SCSER 11:52 → SCSEROBS 13:16 → 2NO 21:55
PROVIDERS: ADMIT Internal Medicine; ATTEND Internal Medicine
DX: I13.0 Hypertensive heart and chronic kidney disease with heart failure and stage 1 through stage 4 chronic kidney disease, or unspecified chronic kidney disease (principal); I50.33 Acute on chronic diastolic (congestive) heart failure; N17.9 Acute kidney failure, unspecified; G47.33 Obstructive sleep apnea (adult) (pediatric); E11.22 Type 2 diabetes mellitus with diabetic chronic kidney disease; N18.3 Chronic kidney disease, stage 3 (moderate); Z95.2 Presence of prosthetic heart valve; Z95.0 Presence of cardiac pacemaker; Z88.0 Allergy status to penicillin; E78.5 Hyperlipidemia, unspecified; Z79.899 Other long term (current) drug therapy; Z79.02 Long term (current) use of antithrombotics/antiplatelets; Z79.82 Long term (current) use of aspirin; D69.6 Thrombocytopenia, unspecified; I35.0 Nonrheumatic aortic (valve) stenosis; G25.81 Restless legs syndrome; L30.8 Other specified dermatitis
CPT/HCPCS: 36415; 36416; 71045; 80048; 80053; 82550; 82553; 83690; 83880; 84484; 85025; 93005; 93306; 93798; 96374; J0360; J1644; J1940